=== PATIENT | male | born 1990 | race American Indian/Alaskan Native ===

== ENCOUNTER 2021-01-20 12:02 | Inpatient (IN) | payer SELFPAY ==
--- NOTE | 2021-01-20 12:46 | XRay Report ---
CHEST 1 VIEW INDICATION / CLINICAL INFORMATION: Dyspnea cough STUDY TIME: 1239 COMPARISON: None available. FINDINGS: SUPPORT DEVICES: None HEART / MEDIASTINUM: No significant abnormality. LUNGS / PLEURA: No significant acute pulmonary or pleural abnormality. No pneumothorax. ADDITIONAL FINDINGS: No significant additional findings. IMPRESSION: No significant acute abnormality Signer Name: George Car MD Signed: 01/20/2021 12:41 PM Workstation Name: [id number]
[2021-01-20 12:47] LABS: Basophils # (Auto) 0.1 K/mm3 (0.0-0.1); Basophils % (Auto) 0.5 % (0.0-1.8); Hemoglobin 16.8 gm/dl (11.8-15.2); Lymphocytes # (Auto) 1.9 K/mm3 (1.2-5.4); Mean Corpuscular HGB Conc 32 % (32-34); Mean Corpuscular Volume 99 fl (84-94); Monocytes # (Auto) 0.6 K/mm3 (0.0-0.8); Monocytes % (Auto) 3.9 % (0.0-7.3); Platelet Count 345 K/mm3 (140-440); Red Blood Count 5.34 M/mm3 (3.65-5.03); Red Cell Distribution Width 14.3 % (13.2-15.2)
[2021-01-20 13:05] LABS: Albumin 4.9 g/dL (3.9-5); Calcium 10.1 mg/dL (8.4-10.2)
[2021-01-20 13:06] LABS: C-Reactive Protein 0.3 mg/dL (0.00-1.30)
[2021-01-20] MEDS ORDERED: ALBUTEROL 2.5 MG/3 ML NEBU IH ONE (13:35)
[2021-01-20] MEDS ORDERED: IPRATROPIUM 0.02% NEBU 2.5 ML IH ONE (13:35)
[2021-01-20] MEDS ORDERED: SODIUM CHLORIDE 0.9% 1000 ML 1,000 ML IV ONE ×3 (13:36→15:03)
[2021-01-20 14:13] LABS: Bilirubin,Urine NEG (Negative); Blood,Urine MOD (Negative); Color,Urine Straw (Yellow); Mucus,Urine 1+ /HPF; Urobilinogen,Urine < 2.0 mg/dL (<2.0)
[2021-01-20 14:19] LABS: Amphetamine Screen,Urine Negative; Benzodiazepines Screen,Urine Negative; Cannabinoid Screen,Urine Negative; Cocaine Screen,Urine Negative; Methadone Screen,Urine Negative; Opiate Screen,Urine Negative
--- NOTE | 2021-01-20 14:54 | Cat Scan Report ---
CT angio chest INDICATION / CLINICAL INFORMATION: tachycardia shortness of breath OMNI 350 60 ML. TECHNIQUE: Axial CT images were obtained through the chest after injection of IV contrast. 3 plane MIP and/or 3D reconstructions were produced. All CT scans at this location are performed using CT dose reduction f or ALARA by means of automated exposure control. COMPARISON: None available. FINDINGS: PULMONARY ARTERIES: No central pulmonary artery filling defects. Respiratory motion degrades image qu ality obscuring the lobar, segmental and subsegmental pulmonary arteries. . HEART: No significant abnormality. MEDIASTINUM / ALISTAIR: No significant abnormality. LUNGS: No significant paraseptal emphysema with bullous changes. Lungs are clear No pleural effusion. No pneumothorax. ADDITIONAL FINDINGS: None. UPPER ABDOMEN: No acute findings. SKELETAL STRUCTURES: No significant osseous abnormality. IMPRESSION: 1. No CT evidence for central pulmonary embolism. Motion significantly degrades image quality in the distal pulmonary arteries are not evaluated. 2. Paraseptal emphysema. No acute findings. Signer Name: Grey Badillo MD Signed: 01/20/2021 2:49 PM Workstation Name: [id number]
[2021-01-20] MEDS ORDERED: INSULIN REGULAR, HUMAN 100 UNITS/1 ML IV ONE (15:03)
--- NOTE | 2021-01-20 15:04 | Emergency Department Report ---
ED Shortness of Breath HPI - General Chief Complaint: Dyspnea/Respdistress Stated Complaint: SOB Time Seen by Provider: 01/20/21 12:15 Source: patient Mode of arrival: Ambulatory Limitations: No Limitations - History of Present Illness Initial Comments: Chief complaint: Trouble breathing HPI: This a 30-year-old male with history of mental health disorder requiring Zyprexa therapy presents with shortness of breath generalized malaise for over a week. He has had shortness of breath cough. No sick contacts. Denies any pain MD Complaint: shortness of breath, cough -: Gradual, week(s) Severity: severe Consistency: constant Improves With: nothing Worsens With: nothing Context: other (History of cough) Associated Symptoms: cough - Related Data Allergies Allergy/AdvReac Type Severity Reaction Status Date / Time No Known Allergies Allergy Verified 01/20/21 12:09 ED Review of Systems ROS: Stated complaint: SOB Other details as noted in HPI Comment: All other systems reviewed and negative Constitutional: malaise. denies: chills, fever Respiratory: cough, shortness of breath Cardiovascular: denies: chest pain Gastrointestinal: denies: abdominal pain, nausea, vomiting Psychiatric: denies: depression, auditory hallucinations, visual hallucinations, homicidal thoughts, suicidal thoughts ED Past Medical Hx - Past Medical History Previous Medical History?: Yes Hx Hypertension: Yes Hx Psychiatric Treatment: Yes (on Zyprexa) - Surgical History Past Surgical History?: No - Social History Smoking Status: Current Every Day Smoker Substance Use Type: None ED Physical Exam - General Limitations: No Limitations General appearance: alert, in distress, other (K[place]maul respirations) - Head Head exam: Present: atraumatic, normocephalic - Eye Eye exam: Present: normal appearance - ENT ENT exam: Present: mucous membranes dry - Neck Neck exam: Present: normal inspection, full ROM - Respiratory Respiratory exam: Present: normal lung sounds bilaterally, other (Increased respiratory rate). Absent: wheezes, rales, rhonchi - Cardiovascular Cardiovascular Exam: Present: normal rhythm, tachycardia, normal heart sounds. Absent: systolic murmur, diastolic murmur, rubs, gallop - GI/Abdominal GI/Abdominal exam: Present: soft, normal bowel sounds. Absent: distended, tenderness, guarding, rebound - Rectal Rectal exam: Present: deferred - Extremities Exam Extremities exam: Present: normal inspection - Neurological Exam Neurological exam: Present: alert, oriented X3 - Psychiatric Psychiatric exam: Present: normal mood, anxious - Skin Skin exam: Present: warm, dry, intact, normal color. Absent: rash ED Course Vital Signs 01/20/21 01/20/21 01/20/21 12:07 13:01 13:31 Pulse Rate 137 H 116 H 110 H Respiratory 34 H 31 H 28 H Rate Blood Pressure 127/100 177/154 139/89 O2 Sat by Pulse 99 100 100 Oximetry 01/20/21 01/20/21 01/20/21 13:33 14:01 14:30 Pulse Rate 111 H 111 H Respiratory 24 25 H 25 H Rate Blood Pressure 167/106 167/106 O2 Sat by Pulse 100 100 100 Oximetry 01/20/21 16:31 Pulse Rate 104 H Respiratory 24 Rate Blood Pressure 157/104 O2 Sat by Pulse 100 Oximetry ED Medical Decision Making - Lab Data Result diagrams: 01/20/21 12:32 01/20/21 15:52 Laboratory Results - last 24 hr 01/20/21 01/20/21 01/20/21 12:32 12:32 12:35 WBC 15.8 H RBC 5.34 H Hgb 16.8 H Hct 53.0 H MCV 99 H MCH 31 MCHC 32 RDW 14.3 Plt Count 345 Lymph % (Auto) 12.0 L [place] % (Auto) 3.9 Eos % (Auto) 0.0 Baso % (Auto) 0.5 Lymph # (Auto) 1.9 [place] # (Auto) 0.6 Eos # (Auto) 0.0 Baso # (Auto) 0.1 Seg Neutrophils % 83.6 H Seg Neutrophils # 13.2 H D-Dimer VBG pH Sodium 127 L Potassium 4.7 Chloride 85.9 L Carbon Dioxide 4 L* Anion Gap 42 BUN 14 Creatinine 1.5 H Estimated GFR 55 BUN/Creatinine Ratio 9 Glucose 649 H* Calcium 10.1 Phosphorus Magnesium Ferritin Total Bilirubin 0.40 AST 13 ALT 30 Alkaline Phosphatase 164 H Lactate Dehydrogenase C-Reactive Protein Total Protein 8.5 H Albumin 4.9 Albumin/Globulin Ratio 1.4 Procalcitonin 0.36 01/20/21 01/20/21 01/20/21 12:35 12:35 12:35 WBC RBC Hgb Hct MCV MCH MCHC RDW Plt Count Lymph % (Auto) [place] % (Auto) Eos % (Auto) Baso % (Auto) Lymph # (Auto) [place] # (Auto) Eos # (Auto) Baso # (Auto) Seg Neutrophils % Seg Neutrophils # D-Dimer 223.16 VBG pH Sodium Potassium Chloride Carbon Dioxide Anion Gap BUN Creatinine Estimated GFR BUN/Creatinine Ratio Glucose 637 H* Calcium Phosphorus Magnesium Ferritin 1371.0 H Total Bilirubin AST ALT Alkaline Phosphatase Lactate Dehydrogenase 213 H C-Reactive Protein 0.30 Total Protein Albumin Albumin/Globulin Ratio Procalcitonin 01/20/21 01/20/21 15:09 15:09 WBC RBC Hgb Hct MCV MCH MCHC RDW Plt Count Lymph % (Auto) [place] % (Auto) Eos % (Auto) Baso % (Auto) Lymph # (Auto) [place] # (Auto) Eos # (Auto) Baso # (Auto) Seg Neutrophils % Seg Neutrophils # D-Dimer VBG pH 7.003 L* Sodium Potassium Chloride Carbon Dioxide Anion Gap BUN Creatinine Estimated GFR BUN/Creatinine Ratio Glucose Calcium Phosphorus 5.10 H Magnesium 2.10 Ferritin Total Bilirubin AST ALT Alkaline Phosphatase Lactate Dehydrogenase C-Reactive Protein Total Protein Albumin Albumin/Globulin Ratio Procalcitonin - EKG Data -: EKG Interpreted by Wy EKG shows normal: sinus rhythm, axis, intervals, QRS complexes, ST-T waves Rate: tachycardia - EKG Data Interpretation: normal EKG 01/20/21 17:26 EKG@1402 EKG interpreted by ms Sinus tachycardia rate 112 bpm normal axis normal intervals no ST elevation nonischemic T wave pattern - Medical Decision Making New onset diabetes mellitus, diabetic ketoacidosis. Severe acidosis venous pH 7.0, bicarbonate 3 Anion gap 37 CBC notable for hemoconcentration, leukocytosis possibly due to infection versus the marginalization. CTA of the chest ruled out pulmonary embolism without evidence of infectious process Admitted to the hospitalist service in fair condition. Patient received normal saline bolus, regular insulin bolus and insulin infusion. Critical Care Time: Yes Critical care time in (mins) excluding proc time.: 40 Critical care attestation.: If time is entered above; I have spent that time in minutes in the direct care of this critically ill patient, excluding procedure time. 40 minutes of critical care time excluding procedures were used in the care of the patient. I came immediately to the bedside upon patient's arrival. I obt ained history from EMS at the bedside. I discussed treatment plan with the nursing team members. I reviewed electronic record. Patient required multiple interventions and reassessments. ED Disposition Clinical Impression: DKA (diabetic ketoacidosis) Qualifiers: Diabetes mellitus complication detail: without coma Disposition: 09 ADMITTED INPATIENT Is pt being admited?: Yes Does the pt Need Aspirin: No Condition: Fair
[2021-01-20] MEDS ORDERED: ALBUTEROL 2.5 MG/3 ML NEBU IH PRN (15:32)
[2021-01-20] MEDS ORDERED: ACETAMINOPHEN 325 MG TAB PO PRN ×2 (15:32)
[2021-01-20] MEDS ORDERED: oxyCODONE /ACETAMINOPHEN 5-325MG TAB PO PRN (15:32)
[2021-01-20] MEDS ORDERED: HYDROmorphone 1 MG/1 ML INJ IV PRN ×2 (15:32)
--- NOTE | 2021-01-20 15:36 | History and Physical Report ---
History of Present Illness Chief complaint: I just do not feel good History of present illness: 30 YO Male with HTN, Nicotine Dependence, Medication Noncompliance presents ED for evaluation. Patient reports "I just do not feel good". Patient states that he has experienced shortness of breath, fatigue, weakness, body aches, nausea, polydipsia, polyuria over the past 1 week with persistent and worsening symptoms over the same timeframe. Patient transported to [facility] via private vehicle for further care and evaluation of the aforementioned symptoms. The patient was seen and evaluated in the emergency department. All lab and imaging studies reviewed. The patient was found to be tachypneic with a respiratory rate in the 30s, a heart rate in the 130s, as well as a pulse oximetry of 87% with exertion which is consistent with acute hypoxemic respiratory failure. Patient found to have DKA, metabolic acidosis, DEEPTI with ATN, as well as sepsis. Patient admitted to ICU and initiated on DKA protocol: Sepsis protocol, as well as coronavirus protocol. Patient denies fever, chills, chest pain, palpitation, skin rash, recent ill contacts, or known exposure to COVID-19. No prior admission for review. No medication listed at time of admission reconciliation. The patient is not vaccinated against coronavirus. Past History Past Medical History: hypertension Past Surgical History: No surgical history, Other (Reviewed) Social history: single. denies: smoking, alcohol abuse Family history: diabetes, hypertension Medications and Allergies Allergies Allergy/AdvReac Type Severity Reaction Status Date / Time No Known Allergies Allergy Verified 01/20/21 12:09 Active Meds: Active Medications Sodium Chloride (Nacl 0.9% 1000 Ml) 1,000 mls @ 999 mls/hr IV BOLUS ONE Stop: 01/20/21 16:03 Last Admin: 01/20/21 15:09 Dose: 999 mls/hr Documented by: Sodium Chloride (Nacl 0.9% 1000 Ml) 1,000 mls @ 999 mls/hr IV BOLUS ONE Stop: 01/20/21 16:03 Insulin Human Regular 100 (units/ Sodium Chloride) 100 mls @ 7 mls/hr IV TITR MT; Protocol Review of Systems Constitutional: weakness, malaise, lethargy, no weight gain, no fever, no chills Ears, nose, mouth and throat: no ear pain, no decreased hearing, no nose pain, no nasal discharge Cardiovascular: no chest pain, no palpitations, no rapid/irregular heart beat, no edema, no syncope Respiratory: shortness of breath, no congestion, no wheezing, no pleurisy, no pain on inspiration Gastrointestinal: nausea, no abdominal pain, no vomiting, no diarrhea, no constipation Genitourinary Male: no hematuria, no flank pain, no discharge, no urinary hesitancy, no nocturia Rectal: no pain, no incontinence, no bleeding Musculoskeletal: no neck stiffness, no shooting arm pain, no low back pain Integumentary: no rash, no redness, no wounds, no jaundice Neurological: no head injury, no paralysis, no weakness, no parathesias, no numbness, no tingling, no seizures Psychiatric: no anxiety, no sleep disturbances, no hypersomnia Endocrine: polydipsia, polyuria, high blood sugars, no cold intolerance, no heat intolerance, no flushing, no thyroid mass Hematologic/Lymphatic: no easy bruising, no easy bleeding, no lymphedema Allergic/Immunologic: no urticaria, no allergic rhinitis, no wheezing, no anaphylaxis Exam - Constitutional Vitals: Temp Pulse Resp BP Pulse Ox 137 H 24 127/100 100 01/20/21 12:07 01/20/21 13:33 01/20/21 12:07 01/20/21 13:33 General appearance: Present: mild distress - EENT Eyes: Present: PERRL ENT: hearing intact, clear oral mucosa - Neck Neck: Present: supple, normal ROM - Respiratory Respiratory effort: labored, accessory muscle use, stridor Respiratory: bilateral: diminished - Cardiovascular Rhythm: other (Tachycardia) Heart Sounds: Present: S1 & S2. Absent: rub, click - Extremities Extremities: pulses symmetrical, No edema Peripheral Pulses: within normal limits - Abdominal General gastrointestinal: Present: soft, non-tender, non-distended, normal bowel sounds Male genitourinary: Present: normal - Integumentary Integumentary: Present: dry, clammy, decreased turgor - Musculoskeletal Musculoskeletal: generalized weakness - Psychiatric Psychiatric: appropriate mood/affect, intact judgment & insight, agitated - Neurologic Neurologic: CNII-XII intact, moves all extremities Results - Labs CBC & Chem 7: 01/20/21 12:32 01/20/21 12:35 Labs: Abnormal lab results 01/20/21 01/20/21 01/20/21 Range/Units 12:32 12:32 12:35 WBC 15.8 H (4.5-11.0) K/mm3 RBC 5.34 H (3.65-5.03) M/mm3 Hgb 16.8 H (11.8-15.2) gm/dl Hct 53.0 H (35.5-45.6) % MCV 99 H (84-94) fl Lymph % (Auto) 12.0 L (13.4-35.0) % Seg Neutrophils % 83.6 H (40.0-70.0) % Seg Neutrophils # 13.2 H (1.8-7.7) K/mm3 Sodium 127 L (137-145) mmol/L Chloride 85.9 L (98-107) mmol/L Carbon Dioxide 4 L* (22-30) mmol/L Creatinine 1.5 H (0.8-1.3) mg/dL Glucose 649 H* 637 H* (75-100) mg/dL Ferritin (30.0-300.0) ng/mL Alkaline Phosphatase 164 H (35-129) units/L Lactate Dehydrogenase 213 H (91-180) units/L Total Protein 8.5 H (6.3-8.2) g/dL 01/20/21 Range/Units 12:35 WBC (4.5-11.0) K/mm3 RBC (3.65-5.03) M/mm3 Hgb (11.8-15.2) gm/dl Hct (35.5-45.6) % MCV (84-94) fl Lymph % (Auto) (13.4-35.0) % Seg Neutrophils % (40.0-70.0) % Seg Neutrophils # (1.8-7.7) K/mm3 Sodium (137-145) mmol/L Chloride (98-107) mmol/L Carbon Dioxide (22-30) mmol/L Creatinine (0.8-1.3) mg/dL Glucose (75-100) mg/dL Ferritin 1371.0 H (30.0-300.0) ng/mL Alkaline Phosphatase (35-129) units/L Lactate Dehydrogenase (91-180) units/L Total Protein (6.3-8.2) g/dL Assessment and Plan - Patient Problems (1) Sepsis Current Visit: No Status: Acute Plan to address problem: Sepsis protocol: CBC, CMP, IV fluid resuscitation therapy, IV antibiotic therapy, serial lactic acid level, monitor urine output every shift, maintain mean arterial pressure greater than or equal to 65, blood culture. The high probability of a clinically significant, sudden or life threatening deterioration of the [endocrine, neuro, renal, infectious disease, pulmonary] system(s) required my full and direct attention, intervention and personal management. The aggregate critical care time was [65] minutes. This time is in addition to time spent performing reported procedures but includes the following: [x] Data Review and interpretation [x] Patient assessment and monitoring of vital signs [x] Documentation [x] Medication orders and management (2) Suspected 2019 novel coronavirus infection Current Visit: No Status: Acute Plan to address problem: Coronavirus protocol: IV antibiotic therapy, IV steroid therapy, supplemental oxygen, pulse oximetry, nebulizer therapy, vitamin C therapy, vitamin D therapy, zinc therapy, (3) DKA (diabetic ketoacidosis) Current Visit: No Status: Acute Qualifiers: Diabetes mellitus complication detail: without coma Plan to address problem: DKA protocol: IV fluid resuscitation therapy, insulin drip, serial BMP, monitor anion gap, (4) Respiratory failure Current Visit: No Status: Acute Qualifiers: Chronicity: acute Respiratory failure complication: hypoxia Qualified Code(s): J96.01 - Acute respiratory failure with hypoxia Plan to address problem: Supplemental oxygen, pulse oximetry, nebulizer therapy, prone positioning while in bed as per clinical staff capability. (5) COVID-19 vaccination not done Current Visit: No Status: Acute Plan to address problem: Patient counseled, supportive care. (6) DVT prophylaxis Current Visit: No Status: Acute Plan to address problem: SCD to bilateral lower extremities while in bed, prophylactic anticoagulation
[2021-01-20] MEDS ORDERED: INSULIN REGULAR, HUMAN 100 UNITS in SODIUM CHLORIDE 0.9% 99 ML IV SCH (16:00)
[2021-01-20] MEDS: INSULIN REGULAR, HUMAN 100 UNITS in SODIUM CHLORIDE 0.9% 99 ML IV SCH (16:10)
[2021-01-20] MEDS ORDERED: SODIUM CHLORIDE 0.9% 1000 ML IV SOLN IV ONE (16:15)
[2021-01-20 16:26] LABS: BUN/Creatinine Ratio 11; Blood Urea Nitrogen 15 mg/dL (9-20); Hemolysis Index 7
[2021-01-20] MEDS: cefTRIAXone/NS 2 GM/100 ML 2 GM/100 ML BAG IV SCH (17:53)
[2021-01-20] MEDS: SODIUM BICARB 8.4% 50 MEQ/50 ML SYRINGE IV SCH (17:53)
[2021-01-20] MEDS: AZITHROMYCIN/NS 500 MG/250 ML 500 MG/250 ML BAG IV SCH (17:53)
--- NOTE | 2021-01-20 17:54 | Electrocardiograph Report ---
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
[2021-01-20] MEDS: methylPREDNISolone Sod Succinate 40 MG/1 ML INJ IV SCH (18:01)
[2021-01-20] MEDS ORDERED: SODIUM CHLORIDE 0.9% 1000 ML 1,000 ML ONE (19:31)
[2021-01-20 20:21] LABS: BUN/Creatinine Ratio 14; Blood Urea Nitrogen 14 mg/dL (9-20); Calcium 8.1 mg/dL (8.4-10.2); Hemolysis Index 9
[2021-01-20] MEDS ORDERED: DEXTROSE 50% IN WATER (25GM) 50 ML SYRINGE IV PRN (22:12)
[2021-01-20] MEDS: ZINC SULFATE 220 MG CAP PO SCH (22:37)
[2021-01-20] MEDS: ASCORBIC ACID 500 MG TAB PO SCH (22:37)
[2021-01-20] MEDS ORDERED: D5W/0.45% NACL/KCL 20 MEQ 20 MEQ/1,000 ML BAG IV SCH (23:00)
[2021-01-21 00:30] LABS: BUN/Creatinine Ratio 10; Blood Urea Nitrogen 11 mg/dL (9-20); Calcium 8.4 mg/dL (8.4-10.2); Hemolysis Index 13
[2021-01-21] MEDS: SODIUM BICARB 8.4% 50 MEQ/50 ML SYRINGE IV SCH ×3 (00:31→11:37)
[2021-01-21] MEDS: methylPREDNISolone Sod Succinate 40 MG/1 ML INJ IV SCH ×2 (01:02→10:03)
[2021-01-21] MEDS: INSULIN REGULAR, HUMAN 100 UNITS in SODIUM CHLORIDE 0.9% 99 ML IV SCH ×2 (04:22→18:06)
[2021-01-21 05:48] LABS: BUN/Creatinine Ratio 9; Blood Urea Nitrogen 9 mg/dL (9-20); Calcium 8.4 mg/dL (8.4-10.2); Hemolysis Index 4
[2021-01-21] MEDS: D5W/0.45% NACL/KCL 40 MEQ 40 MEQ/1,000 ML BAG IV SCH ×2 (07:23→12:51)
[2021-01-21 08:45] LABS: BUN/Creatinine Ratio 10; Blood Urea Nitrogen 9 mg/dL (9-20); Calcium 8.7 mg/dL (8.4-10.2); Hemolysis Index 9
[2021-01-21] MEDS: CHOLECALCIFEROL (VIT D3) 1000 UNIT (25 mcg) TAB PO SCH (10:18)
[2021-01-21] MEDS: ZINC SULFATE 220 MG CAP PO SCH ×2 (10:18→21:58)
[2021-01-21] MEDS: ASCORBIC ACID 500 MG TAB PO SCH ×2 (10:18→21:57)
[2021-01-21] MEDS ORDERED: SODIUM PHOSPHATE 30 MMOL in SODIUM CHLORIDE 0.9% 500 ML 500 ML IV SCH (11:00)
[2021-01-21 13:15] LABS: Hematocrit 38.8 % (35.5-45.6); Hemoglobin 13.3 gm/dl (11.8-15.2); Mean Corpuscular HGB Conc 34 % (32-34); Mean Corpuscular Volume 90 fl (84-94); Platelet Count 250 K/mm3 (140-440); Red Blood Count 4.31 M/mm3 (3.65-5.03); Red Cell Distribution Width 13.1 % (13.2-15.2)
--- NOTE | 2021-01-21 14:31 | Progress Note ---
<KIRSTIE VORA - Last Filed: 01/21/21 16:44> Assessment and Plan Assessment and plan: This is a [id number] AA Male with a history of HTN, noncompliant with meds, depression, and nicotine dependence who came complaining of not feeling good. Patient states that he has experienced shortness of breath, fatigue, weakness, body aches, nausea, polydipsia, polyuria over the past 1 week with persistent and worsening symptoms over the same timeframe. In the ED patient was tachycardic, tachypneic, hypoxic with SPO2 at 87% on RA. Patient was found to be in DKA and metabolic acidosis, DKA protocol was initiated. Patient was then transferred to ICU for further management. Hospital Course to Date: 01/21/21- Patient remains on DKA protocol, repeat labs pending to f/u on GAP. Electrolytes replaced, renal function improved. Will continue to monitor electrolytes and renal function, serial labs ordered Assessment and Plan #Neuro:Anxiety #H/o Depression - Probably secondary due to his acidosis - Patient is currently calm and cooperative - Stated he takes zyprexa for depression but can't remember the dosage, to bring home meds today - Avoid benzodiazepine at this time - Prn analgesia for CPOT greater than 3 - Maintenance of sleep-wake cycle, avoid delirium #CV:Tachycardia #H/o HTN - Remains ST on the monitor, HR in 110s - Patient is normotensive - Maintain adequate perfusion - Continue rehydration with cont. 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 Paraseptal emphysema - Initial 87% on RA - Currently 99% to 100% on RA - Acidosis resolved - COVID swab neg - Continue SPO2 monitoring and supplemental oxygen as needed for SPO2 less than 90% #GI: NPO - Keep NPO while on DKA protocol - Continue rehydration with cont. IVF per DKA protoco - PPI- Pecid BID #:Hyponatremia #Hypophosphatemia - Electtrolytes repleted - Renal function improved - Continue IVF per DKA protocol - Stright I&Os - Avoid nephrotoxic medications; Renally dose medications - Continue to monitor renal status and electrolytes - Serial labs ordered #Leukocytosis #Metabolic Acidosis #Lactic Acidosis- resolved - Probably related to the DKA - Lactic as high as 3.5--->1.1 - Leukocytosis worsen 19.9 today - Imagings are unremarkable - COVID swab neg - Blood culture pending - Procal and CRP are normal - Patient remains afebrile - Continue empiric ABx- Rocephin and Azithromycin for now - Continue to F/U on B.cult - Daily CBC monitor - Consider ID consult if febrile or/and if leukocytosis persists #DKA (diabetic ketoacidosis) - Continue DKA protocol - IV fluid resuscitation therapy - On insulin drip - Serial BMP - Continue to monitor anion gap The high probability of a clinically significant, sudden or life threatening deterioration of the [ID, Endo, ] system(s) required my full and direct attention, intervention and personal management. The aggregate critical care time was [60] minutes. This time is in addition to time spent performing reported procedures but includes the following: [x] Data Review and interpretation [x] Patient assessment and monitoring of vital signs [x] Documentation [x] Medication orders and management Disposition Plan: ICU Total Time Spent with Patient (Minutes): 60 History Interval history: Patient seen and examined at the bedside. Fully AAO, on RA, on DKA protocol. No significant events overnight Hospitalist Physical - Constitutional Vitals: Temp Pulse Resp BP Pulse Ox 98.3 F 99 H 25 H 145/86 95 01/21/21 07:20 01/21/21 13:11 01/21/21 13:11 01/21/21 13:11 01/21/21 13:11 General appearance: Present: no acute distress, mild distress - EENT Eyes: Present: PERRL ENT: hearing intact, clear oral mucosa - Neck Neck: Present: normal ROM - Respiratory Respiratory effort: normal Respiratory: bilateral: CTA - Cardiovascular Rhythm: regular Heart Sounds: Present: S1 & S2 - Extremities Extremities: no ischemia, pulses intact, pulses symmetrical, No edema Peripheral Pulses: within normal limits - Abdominal General gastrointestinal: soft, non-tender, normal bowel sounds - Integumentary Integumentary: Present: clear, warm, dry - Psychiatric Psychiatric: appropriate mood/affect, cooperative - Neurologic Neurologic: moves all extremities - Allied Health Allied health notes reviewed: nursing Results - Labs CBC & Chem 7: 01/21/21 12:58 01/21/21 14:44 Labs: Laboratory Last Values WBC 19.9 K/mm3 (4.5-11.0) H 01/21/21 12:58 RBC 4.31 M/mm3 (3.65-5.03) 01/21/21 12:58 Hgb 13.3 gm/dl (11.8-15.2) D 01/21/21 12:58 Hct 38.8 % (35.5-45.6) D 01/21/21 12:58 MCV 90 fl (84-94) 01/21/21 12:58 MCH 31 pg (28-32) 01/21/21 12:58 MCHC 34 % (32-34) 01/21/21 12:58 RDW 13.1 % (13.2-15.2) L 01/21/21 12:58 Plt Count 250 K/mm3 (140-440) 01/21/21 12:58 Lymph % (Auto) 12.0 % (13.4-35.0) L 01/20/21 12:32 [place] % (Auto) 3.9 % (0.0-7.3) 01/20/21 12:32 Eos % (Auto) 0.0 % (0.0-4.3) 01/20/21 12:32 Baso % (Auto) 0.5 % (0.0-1.8) 01/20/21 12:32 Lymph # (Auto) 1.9 K/mm3 (1.2-5.4) 01/20/21 12:32 [place] # (Auto) 0.6 K/mm3 (0.0-0.8) 01/20/21 12:32 Eos # (Auto) 0.0 K/mm3 (0.0-0.4) 01/20/21 12:32 Baso # (Auto) 0.1 K/mm3 (0.0-0.1) 01/20/21 12:32 Seg Neutrophils % 83.6 % (40.0-70.0) H 01/20/21 12:32 Seg Neutrophils # 13.2 K/mm3 (1.8-7.7) H 01/20/21 12:32 D-Dimer 223.16 ng/mlDDU (0-234) 01/20/21 12:35 VBG pH 7.003 (7.320-7.420) L* 01/20/21 15:09 Sodium 133 mmol/L (137-145) L 01/21/21 08:00 Potassium 3.6 mmol/L (3.6-5.0) 01/21/21 08:00 Chloride 101.2 mmol/L (98-107) 01/21/21 08:00 Carbon Dioxide 14 mmol/L (22-30) L 01/21/21 08:00 Anion Gap 21 mmol/L 01/21/21 08:00 BUN 9 mg/dL (9-20) 01/21/21 08:00 Creatinine 0.9 mg/dL (0.8-1.3) 01/21/21 08:00 Estimated GFR > 60 ml/min 01/21/21 08:00 BUN/Creatinine Ratio 10 % 01/21/21 08:00 Glucose 160 mg/dL (75-100) H 01/21/21 08:00 POC Glucose 234 mg/dL (70-105) H 01/21/21 14:17 Lactic Acid 1.10 mmol/L (0.7-2.0) 01/20/21 23:41 Calcium 8.7 mg/dL (8.4-10.2) 01/21/21 08:00 Phosphorus 1.20 mg/dL (2.5-4.5) L D 01/21/21 08:00 Magnesium 1.80 mg/dL (1.7-2.3) 01/21/21 08:00 Ferritin 1371.0 ng/mL (30.0-300.0) H 01/20/21 12:35 Total Bilirubin 0.40 mg/dL (0.1-1.2) 01/20/21 12:32 AST 13 units/L (5-40) 01/20/21 12:32 ALT 30 units/L (7-56) 01/20/21 12:32 Alkaline Phosphatase 164 units/L (35-129) H 01/20/21 12:32 Lactate Dehydrogenase 213 units/L (91-180) H 01/20/21 12:35 C-Reactive Protein 0.30 mg/dL (0.00-1.30) 01/20/21 12:35 Total Protein 8.5 g/dL (6.3-8.2) H 01/20/21 12:32 Albumin 4.9 g/dL (3.9-5) 01/20/21 12:32 Albumin/Globulin Ratio 1.4 % 01/20/21 12:32 Procalcitonin 0.36 ng/mL (<0.15) 01/20/21 12:35 Urine Color Straw (Yellow) 01/20/21 Unknown Urine Turbidity Clear (Clear) 01/20/21 Unknown Urine pH 5.0 (5.0-7.0) 01/20/21 Unknown Ur Specific [place] 1.024 (1.003-1.030) 01/20/21 Unknown Urine Protein 100 mg/dl mg/dL (Negative) 01/20/21 Unknown Urine Glucose (UA) >=500 mg/dL (Negative) 01/20/21 Unknown Urine Ketones 80 mg/dL (Negative) 01/20/21 Unknown Urine Blood Mod (Negative) 01/20/21 Unknown Urine Nitrite Neg (Negative) 01/20/21 Unknown Urine Bilirubin Neg (Negative) 01/20/21 Unknown Urine Urobilinogen < 2.0 mg/dL (<2.0) 01/20/21 Unknown Ur Leukocyte Esterase Neg (Negative) 01/20/21 Unknown Urine WBC (Auto) 1.0 /HPF (0.0-6.0) 01/20/21 Unknown Urine RBC (Auto) 1.0 /HPF (0.0-6.0) 01/20/21 Unknown U Epithel Cells (Auto) 1.0 /HPF (0-13.0) 01/20/21 Unknown Urine Mucus 1+ /HPF 01/20/21 Unknown Urine Opiates Screen Negative 01/20/21 Unknown Urine Methadone Screen Negative 01/20/21 Unknown Ur Barbiturates Screen Negative 01/20/21 Unknown Ur Phencyclidine Scrn Negative 01/20/21 Unknown Ur Amphetamines Screen Negative 01/20/21 Unknown U Benzodiazepines Scrn Negative 01/20/21 Unknown Urine Cocaine Screen Negative 01/20/21 Unknown U Marijuana (THC) Screen Negative 01/20/21 Unknown Drugs of Abuse Note Disclamer 01/20/21 Unknown Coronavirus (PCR) Negative (Negative) 01/21/21 Unknown Microbiology: Microbiology 01/20/21 15:52 Peripheral/Venous Blood Culture - Preliminary Culture in Progress 01/20/21 15:52 Peripheral/Venous Blood Culture - Preliminary Culture in Progress Active Medications - Current Medications Current Medications: Generic Name Dose Route Start Last Admin Trade Name Freq PRN Reason Stop Dose Admin Acetaminophen 650 mg 01/20/21 15:32 Acetaminophen 325 Mg Tab PO Q6H PRN Pain MILD(1-3)/Fever >100.5/CONSTANTINO Albuterol 2.5 mg 01/20/21 15:32 Albuterol 2.5 Mg/3 Ml Nebu IH Q3HRT PRN Shortness Of Breath Ascorbic Acid 500 mg 01/20/21 22:00 01/21/21 10:18 Ascorbic Acid 500 Mg Tab PO Not Given BID MT Cholecalciferol 1,000 unit 01/21/21 10:00 01/21/21 10:18 Cholecalciferol (Vit D3) 1000 Unit (25 Mcg) Tab PO Not Given QDAY MT Dextrose 0 ml 01/20/21 22:12 Dextrose 50% In Water (25gm) 50 Ml Syringe IV Q30MIN PRN Hypoglycemia Protocol Hydromorphone HCl 0.25 mg 01/20/21 15:32 Hydromorphone 1 Mg/1 Ml Inj IV Q4H PRN Pain, Moderate (4-6) Hydromorphone HCl 0.5 mg 01/20/21 15:32 Hydromorphone 1 Mg/1 Ml Inj IV Q23H PRN Pain , Severe (7-10) Insulin Human Regular 100 100 mls @ 7 mls/hr 01/20/21 16:00 01/21/21 12:56 units/ Sodium Chloride IV 0 units/hr TITR MT 0 mls/hr Titration Protocol 7 UNITS/HR Ceftriaxone Sodium 2 gm in 100 mls @ 200 mls/hr 01/20/21 17:00 01/20/21 17:53 Rocephin/Ns 2 Gm/100 Ml IV 200 mls/hr Q24H MT Administration Protocol Azithromycin 500 mg in 250 mls @ 250 mls/hr 01/20/21 17:00 01/20/21 17:53 Zithromax/Ns IV 250 mls/hr Q24H MT Administration Protocol Potassium Chloride/Dextrose/Sod Cl 40 meq in 1,000 mls @ 125 mls/hr 01/21/21 07:00 01/21/21 12:51 D5w/0.45% Nacl/Kcl 40 Meq IV 125 mls/hr DIRECT MT Administration Sodium Phosphate 30 mmol/ 510 mls @ 125 mls/hr 01/21/21 11:00 01/21/21 11:37 Sodium Chloride IV 01/21/21 16:00 125 mls/hr ONCE@1100 MT Administration Methylprednisolone Sodium Succinate 40 mg 01/20/21 18:00 01/21/21 10:03 Methylprednisolone Sod Succinate 40 Mg/1 Ml Inj IV 40 mg Q8H MT Administration Oxycodone/Acetaminophen 1 tab 01/20/21 15:32 Oxycodone /Acetaminophen 5-325mg Tab PO Q16H PRN Pain, Moderate (4-6) Sodium Bicarbonate 50 meq 01/20/21 17:00 01/21/21 11:37 Sodium Bicarb 8.4% 50 Meq/50 Ml Syringe IV 01/21/21 16:59 50 meq Q6H MT Administration Sodium Chloride 10 ml 01/20/21 22:00 01/21/21 10:04 Sodium Chloride 0.9% 10 Ml Flush Syringe IV 10 ml BID MT Administration Sodium Chloride 10 ml 01/20/21 15:32 Sodium Chloride 0.9% 10 Ml Flush Syringe IV PRN PRN LINE FLUSH Zinc Sulfate 220 mg 01/20/21 22:00 01/21/21 10:18 Zinc Sulfate 220 Mg Cap PO Not Given BID MT Nutrition/Malnutrition Assess - Dietary Evaluation Nutrition/Malnutrition Findings: Nutrition Notes Start: 01/21/21 12:41 Freq: Status: Active Protocol: Document 01/21/21 12:41 JEYSON (Rec: 01/21/21 12:52 JEYSON [id number]) Nutrition Notes Need for Assessment generated from: MD Order,time study clerk,MST Initial or Follow up Assessment Current Diagnosis Acute Kidney Injury,Diabetes, Sepsis,Respiratory Failure Other Pertinent Diagnosis DKA, SOB, r/o COVID-19, mental health d/o Current Diet NPO Labs/Tests Phos 1.2 CO2 - 14 Na 133 BG 160 Pertinent Medications Vit C and D3, Zinc sulfate, Insulin gtt, Solumedrol, Na bicarb, D5 1/2NS + 40mEq KCl at 125ml/hr Height 5 ft 11 in Weight 77.111 kg [place] Body Weight (kg) 78.18 BMI 23.7 Weight Status Appropriate Subjective/Other Information RD consulted for diet education and NTR recommendations; pt also screened for malnutrition risk and new onset DM. Pt with hx of medication noncompliance. He was admitted with s/s of hyperglycemia. BG upon admission was 649. Pt on enhanced precaution for COVID- 19; attempted to call pt several times for malnutrition risk assessment, but he is not answering phone. Burn Absent Trauma Absent Minimum of two criteria No #1 Nutrition Diagnosis Altered nutrition-related laboratory values Etiology hx of medication noncompliance , uncontrolled DM As Evidenced by Signs and Symptoms BG upon admission 649 Is patient on ventilator? No Is Patient Ambulatory and/or Out of Bed No REE-(Lohman-St. Jeor-confined to bed) [phone] Calculation Used for Recommendations Lohman-St Jeor Additional Notes Pro needs 1.2-2g/k-154g/ day Fluid needs 1ml/kcal Nutrition Intervention Change Diet Order: Advance diet to Consistent CHO when medically feasible Goal #1 Improved BG control Goal #2 Diet advancement to meet nutrient needs Anticipated Discharge Needs: CHO-controlled diet; take medications as prescribed Follow-Up By: 01/25/21 Additional Comments F/U: diet advancement, diet education needs, MST assessment <TK SIERRA - Last Filed: 01/21/21 23:15> Assessment and Plan Assessment and plan: I saw and evaluated the patient. Discussed with the nurse practitioner and agree with their findings and plan as documented in this note. Hospitalist Physical - Constitutional Vitals: Temp Pulse Resp BP Pulse Ox 98.3 F 108 H 23 131/87 99 01/21/21 20:00 01/21/21 22:40 01/21/21 22:40 01/21/21 22:40 01/21/21 22:40 Results - Labs CBC & Chem 7: 01/21/21 12:58 01/21/21 18:37 Labs: Laboratory Last Values WBC 19.9 K/mm3 (4.5-11.0) H 01/21/21 12:58 RBC 4.31 M/mm3 (3.65-5.03) 01/21/21 12:58 Hgb 13.3 gm/dl (11.8-15.2) D 01/21/21 12:58 Hct 38.8 % (35.5-45.6) D 01/21/21 12:58 MCV 90 fl (84-94) 01/21/21 12:58 MCH 31 pg (28-32) 01/21/21 12:58 MCHC 34 % (32-34) 01/21/21 12:58 RDW 13.1 % (13.2-15.2) L 01/21/21 12:58 Plt Count 250 K/mm3 (140-440) 01/21/21 12:58 Lymph % (Auto) 12.0 % (13.4-35.0) L 01/20/21 12:32 [place] % (Auto) 3.9 % (0.0-7.3) 01/20/21 12:32 Eos % (Auto) 0.0 % (0.0-4.3) 01/20/21 12:32 Baso % (Auto) 0.5 % (0.0-1.8) 01/20/21 12:32 Lymph # (Auto) 1.9 K/mm3 (1.2-5.4) 01/20/21 12:32 [place] # (Auto) 0.6 K/mm3 (0.0-0.8) 01/20/21 12:32 Eos # (Auto) 0.0 K/mm3 (0.0-0.4) 01/20/21 12:32 Baso # (Auto) 0.1 K/mm3 (0.0-0.1) 01/20/21 12:32 Seg Neutrophils % 83.6 % (40.0-70.0) H 01/20/21 12:32 Seg Neutrophils # 13.2 K/mm3 (1.8-7.7) H 01/20/21 12:32 D-Dimer 223.16 ng/mlDDU (0-234) 01/20/21 12:35 VBG pH 7.003 (7.320-7.420) L* 01/20/21 15:09 Sodium 137 mmol/L (137-145) 01/21/21 18:37 Potassium 3.5 mmol/L (3.6-5.0) L 01/21/21 18:37 Chloride 105.8 mmol/L (98-107) 01/21/21 18:37 Carbon Dioxide 16 mmol/L (22-30) L 01/21/21 18:37 Anion Gap 19 mmol/L 01/21/21 18:37 BUN 8 mg/dL (9-20) L 01/21/21 18:37 Creatinine 0.8 mg/dL (0.8-1.3) 01/21/21 18:37 Estimated GFR > 60 ml/min 01/21/21 18:37 BUN/Creatinine Ratio 10 % 01/21/21 18:37 Glucose 124 mg/dL (75-100) H 01/21/21 18:37 POC Glucose 184 mg/dL (70-105) H 01/21/21 22:16 Lactic Acid 1.10 mmol/L (0.7-2.0) 01/20/21 23:41 Calcium 8.5 mg/dL (8.4-10.2) 01/21/21 18:37 Phosphorus 1.10 mg/dL (2.5-4.5) L 01/21/21 18:37 Magnesium 1.80 mg/dL (1.7-2.3) 01/21/21 18:37 Ferritin 1371.0 ng/mL (30.0-300.0) H 01/20/21 12:35 Total Bilirubin 0.40 mg/dL (0.1-1.2) 01/20/21 12:32 AST 13 units/L (5-40) 01/20/21 12:32 ALT 30 units/L (7-56) 01/20/21 12:32 Alkaline Phosphatase 164 units/L (35-129) H 01/20/21 12:32 Lactate Dehydrogenase 213 units/L (91-180) H 01/20/21 12:35 C-Reactive Protein 0.30 mg/dL (0.00-1.30) 01/20/21 12:35 Total Protein 8.5 g/dL (6.3-8.2) H 01/20/21 12:32 Albumin 4.9 g/dL (3.9-5) 01/20/21 12:32 Albumin/Globulin Ratio 1.4 % 01/20/21 12:32 Procalcitonin 0.36 ng/mL (<0.15) 01/20/21 12:35 Urine Color Straw (Yellow) 01/20/21 Unknown Urine Turbidity Clear (Clear) 01/20/21 Unknown Urine pH 5.0 (5.0-7.0) 01/20/21 Unknown Ur Specific [place] 1.024 (1.003-1.030) 01/20/21 Unknown Urine Protein 100 mg/dl mg/dL (Negative) 01/20/21 Unknown Urine Glucose (UA) >=500 mg/dL (Negative) 01/20/21 Unknown Urine Ketones 80 mg/dL (Negative) 01/20/21 Unknown Urine Blood Mod (Negative) 01/20/21 Unknown Urine Nitrite Neg (Negative) 01/20/21 Unknown Urine Bilirubin Neg (Negative) 01/20/21 Unknown Urine Urobilinogen < 2.0 mg/dL (<2.0) 01/20/21 Unknown Ur Leukocyte Esterase Neg (Negative) 01/20/21 Unknown Urine WBC (Auto) 1.0 /HPF (0.0-6.0) 01/20/21 Unknown Urine RBC (Auto) 1.0 /HPF (0.0-6.0) 01/20/21 Unknown U Epithel Cells (Auto) 1.0 /HPF (0-13.0) 01/20/21 Unknown Urine Mucus 1+ /HPF 01/20/21 Unknown Urine Opiates Screen Negative 01/20/21 Unknown Urine Methadone Screen Negative 01/20/21 Unknown Ur Barbiturates Screen Negative 01/20/21 Unknown Ur Phencyclidine Scrn Negative 01/20/21 Unknown Ur Amphetamines Screen Negative 01/20/21 Unknown U Benzodiazepines Scrn Negative 01/20/21 Unknown Urine Cocaine Screen Negative 01/20/21 Unknown U Marijuana (THC) Screen Negative 01/20/21 Unknown Drugs of Abuse Note Disclamer 01/20/21 Unknown Coronavirus (PCR) Negative (Negative) 01/21/21 Unknown Microbiology: Microbiology 01/20/21 15:52 Peripheral/Venous Blood Culture - Preliminary NO GROWTH AFTER 24 HOURS 01/20/21 15:52 Peripheral/Venous Blood Culture - Preliminary NO GROWTH AFTER 24 HOURS Active Medications - Current Medications Current Medications: Generic Name Dose Route Start Last Admin Trade Name Freq PRN Reason Stop Dose Admin Acetaminophen 650 mg 01/20/21 15:32 Acetaminophen 325 Mg Tab PO Q6H PRN Pain MILD(1-3)/Fever >100.5/CONSTANTINO Albuterol 2.5 mg 01/20/21 15:32 Albuterol 2.5 Mg/3 Ml Nebu IH Q3HRT PRN Shortness Of Breath Ascorbic Acid 500 mg 10/27/21 22:00 01/21/21 21:57 Ascorbic Acid 500 Mg Tab PO 500 mg BID MT Administration Cholecalciferol 1,000 unit 01/21/21 10:00 01/21/21 10:18 Cholecalciferol (Vit D3) 1000 Unit (25 Mcg) Tab PO Not Given QDAY MT Dextrose 0 ml 01/20/21 22:12 Dextrose 50% In Water (25gm) 50 Ml Syringe IV Q30MIN PRN Hypoglycemia Protocol Dextrose 50 ml 01/21/21 18:56 Dextrose 50% In Water (25gm) 50 Ml Syringe IV Q30MIN PRN Hypoglycemia Protocol Enoxaparin Sodium 40 mg 01/21/21 22:00 01/21/21 21:57 Enoxaparin 40 Mg/0.4 Ml Inj SUB-Q 40 mg QDAY@2200 MT Administration Protocol Famotidine 20 mg 01/21/21 22:00 01/21/21 21:57 Famotidine 20 Mg Tab PO 20 mg BID MT Administration Hydromorphone HCl 0.25 mg 01/20/21 15:32 Hydromorphone 1 Mg/1 Ml Inj IV Q4H PRN Pain, Moderate (4-6) Hydromorphone HCl 0.5 mg 01/20/21 15:32 Hydromorphone 1 Mg/1 Ml Inj IV Q23H PRN Pain , Severe (7-10) Ceftriaxone Sodium 2 gm in 100 mls @ 200 mls/hr 01/20/21 17:00 01/21/21 17:20 Rocephin/Ns 2 Gm/100 Ml IV 200 mls/hr Q24H MT Administration Protocol Azithromycin 500 mg in 250 mls @ 250 mls/hr 01/20/21 17:00 01/21/21 17:21 Zithromax/Ns IV 250 mls/hr Q24H MT Administration Protocol Potassium Chloride/Dextrose/Sod Cl 40 meq in 1,000 mls @ 125 mls/hr 01/21/21 07:00 01/21/21 12:51 D5w/0.45% Nacl/Kcl 40 Meq IV 125 mls/hr DIRECT MT Administration Magnesium Sulfate 2 gm in 50 mls @ 25 mls/hr 01/21/21 21:30 01/21/21 21:57 Magnesium Sulfate 2gm/50ml IV 01/21/21 23:29 25 mls/hr ONCE ONE Administration Sodium Phosphate 30 mmol/ 510 mls @ 125 mls/hr 01/21/21 20:00 01/21/21 21:57 Sodium Chloride IV 01/22/21 00:04 125 mls/hr ONCE ONE Administration Insulin Human Lispro 0 unit 01/21/21 19:05 01/21/21 20:25 Insulin Lispro 100 Unit/Ml SUB-Q Not Given Q4H [facility] Protocol Oxycodone/Acetaminophen 1 tab 01/20/21 15:32 Oxycodone /Acetaminophen 5-325mg Tab PO Q16H PRN Pain, Moderate (4-6) Sodium Chloride 10 ml 01/20/21 22:00 01/21/21 21:58 Sodium Chloride 0.9% 10 Ml Flush Syringe IV 10 ml BID MT Administration Sodium Chloride 10 ml 01/20/21 15:32 Sodium Chloride 0.9% 10 Ml Flush Syringe IV PRN PRN LINE FLUSH Zinc Sulfate 220 mg 01/20/21 22:00 01/21/21 21:58 Zinc Sulfate 220 Mg Cap PO 220 mg BID MT Administration Nutrition/Malnutrition Assess - Dietary Evaluation Nutrition/Malnutrition Findings: Nutrition Notes Start: 01/21/21 12:41 Freq: Status: Active Protocol: Document 01/21/21 12:41 JEYSON (Rec: 01/21/21 12:52 JEYSON [id number]) Nutrition Notes Need for Assessment generated from: MD Order,time study clerk,MST Initial or Follow up Assessment Current Diagnosis Acute Kidney Injury,Diabetes, Sepsis,Respiratory Failure Other Pertinent Diagnosis DKA, SOB, r/o COVID-19, mental health d/o Current Diet NPO Labs/Tests Phos 1.2 CO2 - 14 Na 133 BG 160 Pertinent Medications Vit C and D3, Zinc sulfate, Insulin gtt, Solumedrol, Na bicarb, D5 1/2NS + 40mEq KCl at 125ml/hr Height 5 ft 11 in Weight 77.111 kg [place] Body Weight (kg) 78.18 BMI 23.7 Weight Status Appropriate Subjective/Other Information RD consulted for diet education and NTR recommendations; pt also screened for malnutrition risk and new onset DM. Pt with hx of medication noncompliance. He was admitted with s/s of hyperglycemia. BG upon admission was 649. Pt on enhanced precaution for COVID- 19; attempted to call pt several times for malnutrition risk assessment, but he is not answering phone. Burn Absent Trauma Absent Minimum of two criteria No #1 Nutrition Diagnosis Altered nutrition-related laboratory values Etiology hx of medication noncompliance , uncontrolled DM As Evidenced by Signs and Symptoms BG upon admission 649 Is patient on ventilator? No Is Patient Ambulatory and/or Out of Bed No REE-([facility]-confined to bed) [phone] Calculation Used for Recommendations [facility] Additional Notes Pro needs 1.2-2g/k-154g/ day Fluid needs 1ml/kcal Nutrition Intervention Change Diet Order: Advance diet to Consistent CHO when medically feasible Goal #1 Improved BG control Goal #2 Diet advancement to meet nutrient needs Anticipated Discharge Needs: CHO-controlled diet; take medications as prescribed Follow-Up By: 01/25/21 Additional Comments F/U: diet advancement, diet education needs, MST assessment
[2021-01-21 16:38] LABS: BUN/Creatinine Ratio 10; Blood Urea Nitrogen 9 mg/dL (9-20); Calcium 8.3 mg/dL (8.4-10.2); Hemolysis Index 7
--- NOTE | 2021-01-21 16:40 | Consultation ---
History of Present Illness Consult date: 01/21/21 Requesting physician: KIRSTIE VORA Reason for consult: other (DKA) History of present illness: PULMONARY/CCM CONSULT NOTE (Full dictation # [id number]) Please see dictated notes for full details Past History Past Medical History: hypertension Past Surgical History: No surgical history, Other (Reviewed) Social history: single. denies: smoking, alcohol abuse Family history: diabetes, hypertension Medications and Allergies Allergies Allergy/AdvReac Type Severity Reaction Status Date / Time No Known Allergies Allergy Verified 01/20/21 12:09 Home Medications Medication Instructions Recorded Confirmed Last Taken Type No Known Home Medications [No 01/20/21 01/20/21 Unknown History Reported Home Medications] Active Meds: Active Medications Acetaminophen (Acetaminophen 325 Mg Tab) 650 mg PO Q6H PRN PRN Reason: Pain MILD(1-3)/Fever >100.5/CONSTANTINO Albuterol (Albuterol 2.5 Mg/3 Ml Nebu) 2.5 mg IH Q3HRT PRN PRN Reason: Shortness Of Breath Ascorbic Acid (Ascorbic Acid 500 Mg Tab) 500 mg PO BID [facility] Last Admin: 01/21/21 10:18 Dose: Not Given Documented by: Cholecalciferol (Cholecalciferol (Vit D3) 1000 Unit (25 Mcg) Tab) 1,000 unit PO QDAY [facility] Last Admin: 01/21/21 10:18 Dose: Not Given Documented by: Dextrose (Dextrose 50% In Water (25gm) 50 Ml Syringe) 0 ml IV Q30MIN PRN; Protocol PRN Reason: Hypoglycemia Famotidine (Famotidine 20 Mg Tab) 20 mg PO BID [facility] Hydromorphone HCl (Hydromorphone 1 Mg/1 Ml Inj) 0.25 mg IV Q4H PRN PRN Reason: Pain, Moderate (4-6) Hydromorphone HCl (Hydromorphone 1 Mg/1 Ml Inj) 0.5 mg IV Q23H PRN PRN Reason: Pain , Severe (7-10) Insulin Human Regular 100 (units/ Sodium Chloride) 100 mls @ 7 mls/hr IV TITR [facility]; Protocol Last Titration: 01/21/21 15:08 Dose: 12 units/hr, 12 mls/hr Documented by: Ceftriaxone Sodium (Rocephin/Ns 2 Gm/100 Ml) 2 gm in 100 mls @ 200 mls/hr IV Q24H MT; Protocol Last Admin: 01/20/21 17:53 Dose: 200 mls/hr Documented by: Azithromycin (Zithromax/Ns) 500 mg in 250 mls @ 250 mls/hr IV Q24H MT; Protocol Last Admin: 01/20/21 17:53 Dose: 250 mls/hr Documented by: Potassium Chloride/Dextrose/Sod Cl (D5w/0.45% Nacl/Kcl 40 Meq) 40 meq in 1,000 mls @ 125 mls/hr IV DIRECT MT Last Admin: 01/21/21 12:51 Dose: 125 mls/hr Documented by: Oxycodone/Acetaminophen (Oxycodone /Acetaminophen 5-325mg Tab) 1 tab PO Q16H PRN PRN Reason: Pain, Moderate (4-6) Potassium Chloride (Potassium Chloride Er 20 Meq Tab) 40 meq PO ONCE ONE Stop: 01/21/21 17:25 Sodium Bicarbonate (Sodium Bicarb 8.4% 50 Meq/50 Ml Syringe) 50 meq IV Q6H MT Stop: 01/21/21 16:59 Last Admin: 01/21/21 11:37 Dose: 50 meq Documented by: Sodium Chloride (Sodium Chloride 0.9% 10 Ml Flush Syringe) 10 ml IV BID [facility] Last Admin: 01/21/21 10:04 Dose: 10 ml Documented by: Sodium Chloride (Sodium Chloride 0.9% 10 Ml Flush Syringe) 10 ml IV PRN PRN PRN Reason: LINE FLUSH Zinc Sulfate (Zinc Sulfate 220 Mg Cap) 220 mg PO BID [facility] Last Admin: 01/21/21 10:18 Dose: Not Given Documented by: Physical Examination Vital signs: Vital Signs Pulse Resp BP Pulse Ox 137 H 34 H 127/100 99 01/20/21 12:07 01/20/21 12:07 01/20/21 12:07 01/20/21 12:07 Results - Laboratory Findings CBC and BMP: 01/21/21 12:58 01/21/21 14:44 PT/INR, D-dimer D-Dimer 223.16 ng/mlDDU (0-234) 01/20/21 12:35 Abnormal lab findings: Abnormal Labs 01/20/21 01/20/21 01/20/21 12:32 12:32 12:35 WBC 15.8 H RBC 5.34 H Hgb 16.8 H Hct 53.0 H MCV 99 H RDW Lymph % (Auto) 12.0 L Seg Neutrophils % 83.6 H Seg Neutrophils # 13.2 H VBG pH Sodium 127 L Potassium Chloride 85.9 L Carbon Dioxide 4 L* Creatinine 1.5 H Glucose 649 H* 637 H* POC Glucose Lactic Acid Calcium Phosphorus Ferritin Alkaline Phosphatase 164 H Lactate Dehydrogenase 213 H Total Protein 8.5 H 01/20/21 01/20/21 01/20/21 12:35 15:09 15:09 WBC RBC Hgb Hct MCV RDW Lymph % (Auto) Seg Neutrophils % Seg Neutrophils # VBG pH 7.003 L* Sodium Potassium Chloride Carbon Dioxide Creatinine Glucose POC Glucose Lactic Acid Calcium Phosphorus 5.10 H Ferritin 1371.0 H Alkaline Phosphatase Lactate Dehydrogenase Total Protein 01/20/21 01/20/21 01/20/21 15:52 15:52 17:19 WBC RBC Hgb Hct MCV RDW Lymph % (Auto) Seg Neutrophils % Seg Neutrophils # VBG pH Sodium 126 L Potassium Chloride 91.1 L Carbon Dioxide 3 L* Creatinine 1.4 H Glucose 584 H* POC Glucose 448 H Lactic Acid 3.50 H* Calcium Phosphorus Ferritin Alkaline Phosphatase Lactate Dehydrogenase Total Protein 01/20/21 01/20/21 01/20/21 19:49 22:01 23:07 WBC RBC Hgb Hct MCV RDW Lymph % (Auto) Seg Neutrophils % Seg Neutrophils # VBG pH Sodium 132 L Potassium Chloride Carbon Dioxide 6 L* Creatinine Glucose 245 H POC Glucose 162 H 153 H Lactic Acid Calcium 8.1 L Phosphorus Ferritin Alkaline Phosphatase Lactate Dehydrogenase Total Protein 01/20/21 01/21/21 01/21/21 23:41 00:05 00:53 WBC RBC Hgb Hct MCV RDW Lymph % (Auto) Seg Neutrophils % Seg Neutrophils # VBG pH Sodium 129 L Potassium Chloride Carbon Dioxide 9 L* Creatinine Glucose 171 H POC Glucose 155 H 195 H Lactic Acid Calcium Phosphorus Ferritin Alkaline Phosphatase Lactate Dehydrogenase Total Protein 01/21/21 01/21/21 01/21/21 02:02 03:05 04:08 WBC RBC Hgb Hct MCV RDW Lymph % (Auto) Seg Neutrophils % Seg Neutrophils # VBG pH Sodium Potassium Chloride Carbon Dioxide Creatinine Glucose POC Glucose 238 H 245 H 186 H Lactic Acid Calcium Phosphorus Ferritin Alkaline Phosphatase Lactate Dehydrogenase Total Protein 01/21/21 01/21/21 01/21/21 04:43 04:58 06:00 WBC RBC Hgb Hct MCV RDW Lymph % (Auto) Seg Neutrophils % Seg Neutrophils # VBG pH Sodium 132 L Potassium Chloride Carbon Dioxide 13 L Creatinine Glucose 179 H POC Glucose 180 H 180 H Lactic Acid Calcium Phosphorus Ferritin Alkaline Phosphatase Lactate Dehydrogenase Total Protein 01/21/21 01/21/21 01/21/21 06:54 08:00 09:13 WBC RBC Hgb Hct MCV RDW Lymph % (Auto) Seg Neutrophils % Seg Neutrophils # VBG pH Sodium 133 L Potassium Chloride Carbon Dioxide 14 L Creatinine Glucose 160 H POC Glucose 138 H 174 H Lactic Acid Calcium Phosphorus 1.20 L D Ferritin Alkaline Phosphatase Lactate Dehydrogenase Total Protein 01/21/21 01/21/21 01/21/21 10:16 12:58 14:17 WBC 19.9 H RBC Hgb Hct MCV RDW 13.1 L Lymph % (Auto) Seg Neutrophils % Seg Neutrophils # VBG pH Sodium Potassium Chloride Carbon Dioxide Creatinine Glucose POC Glucose 187 H 234 H Lactic Acid Calcium Phosphorus Ferritin Alkaline Phosphatase Lactate Dehydrogenase Total Protein 01/21/21 01/21/21 01/21/21 14:44 15:06 16:01 WBC RBC Hgb Hct MCV RDW Lymph % (Auto) Seg Neutrophils % Seg Neutrophils # VBG pH Sodium 136 L Potassium 3.5 L Chloride Carbon Dioxide 12 L Creatinine Glucose 196 H POC Glucose 205 H 187 H Lactic Acid Calcium 8.3 L Phosphorus Ferritin Alkaline Phosphatase Lactate Dehydrogenase Total Protein
[2021-01-21] MEDS: cefTRIAXone/NS 2 GM/100 ML 2 GM/100 ML BAG IV SCH (17:20)
[2021-01-21] MEDS: AZITHROMYCIN/NS 500 MG/250 ML 500 MG/250 ML BAG IV SCH (17:21)
[2021-01-21] MEDS ORDERED: POTASSIUM CHLORIDE ER 20 MEQ TAB PO ONE (17:24)
[2021-01-21] MEDS ORDERED: DEXTROSE 50% IN WATER (25GM) 50 ML SYRINGE IV PRN (18:56)
[2021-01-21] MEDS ORDERED: INSULIN GLARGINE 100 UNITS/ML SUB-Q STA (19:04)
[2021-01-21 19:07] LABS: BUN/Creatinine Ratio 10; Blood Urea Nitrogen 8 mg/dL (9-20); Calcium 8.5 mg/dL (8.4-10.2); Hemolysis Index 17
[2021-01-21] MEDS ORDERED: SODIUM PHOSPHATE 30 MMOL in SODIUM CHLORIDE 0.9% 500 ML 500 ML IV ONE (20:00)
[2021-01-21] MEDS: INSULIN LISPRO 100 UNIT/ML SUB-Q SCH ×2 (20:25→23:53)
[2021-01-21] MEDS ORDERED: POTASSIUM PHOSPHATE 15 MMOL in SODIUM CHLORIDE 0.9% 250ML 250 ML IV ONE (21:00)
[2021-01-21] MEDS ORDERED: MAGNESIUM SULFATE 2 GM/50 ML BAG IV ONE (21:30)
[2021-01-21] MEDS: ENOXAPARIN 40 MG/0.4 ML INJ SUB-Q SCH (21:57)
[2021-01-21] MEDS: FAMOTIDINE 20 MG TAB PO SCH (21:57)
--- NOTE | 2021-01-22 01:27 | Consultation ---
DATE OF CONSULTATION: 01/21/2021 PULMONARY AND CRITICAL CARE CONSULTATION NOTE CONSULTING PHYSICIAN: Dr. Etienne Keita. REASON FOR CONSULTATION: Diabetic ketoacidosis, new onset diabetes. CHIEF COMPLAINT AND HISTORY OF PRESENT ILLNESS: The patient is a 30-year-old male with past medical history significant amongst other things for a diagnosis of hypertension, tobacco abuse, regular medical noncompliance, came into the Emergency Room, complaining of just not feeling good. He had been experiencing shortness of breath, fatigue, weakness, body aches, complained of polydipsia, polyuria. It had been going on really for about a week he tells me, but he developed worsening symptoms over the same timeframe. He also developed nausea and vomiting and hence, he came to the ER to get checked in the Emergency Room. He was hypoxemic. He had evidence of a systemic inflammatory response syndrome and he was hypoxemic. He was ultimately diagnosed with diabetic ketoacidosis, but also an acute kidney injury and he was septic. He was admitted in intensive care unit on DKA protocol where I stopped by to see him. When I stopped by to see him, he remained on the insulin drip at about 4 units per hour. He denied any continued vomiting. He was feeling better. He denies gross or streaky hemoptysis. He denies any sick contacts. He denies any contact with anybody with known COVID-19 infection. This is really as much of the history of presentation as I have. PAST MEDICAL HISTORY: Hypertension, tobacco abuse. PAST SURGICAL HISTORY: Denied. MEDICATIONS: He was on at the time I stopped by to see him were reviewed, pertinent medications were included the following: Tylenol 650 mg p.o. q. 6 hours p.r.n. mild pain or fevers, albuterol 2.5 mg nebulized q. 3 hours p.r.n. shortness of breath, vitamin C 500 mg p.o. b.i.d., azithromycin 500 mg IV daily, Rocephin 2 grams IV daily, vitamin D3 1000 units p.o. daily, Pepcid 20 mg p.o. b.i.d., Dilaudid 0.25 mg IV q. 4 hours and p.r.n. moderate pain and 0.5 mg IV q. 3 hours p.r.n. severe pain, insulin drip was going at 7 units per hour. Percocet 5/325 one tablet p.o. q. 6 hours p.r.n. moderate pain, zinc sulfate 220 mg p.o. b.i.d. ALLERGIES: No known drug allergies. DIET: Thin gentleman. He has lost some weight in the preceding few weeks to months. FAMILY AND SOCIAL HISTORY: Lives in the community. Denies alcohol, illicit drug use or abuse. He gives a less than 50-[id number] tobacco smoking history. There is a family history of diabetes and hypertension. REVIEW OF SYSTEMS: No loss of consciousness. No new onset seizures. No new onset focal weakness. He had polydipsia and polyuria. He denies gross or streaky hemoptysis. He denies any seizures. He denies any heat or cold intolerance. A complete 13-system review of system was obtained. Pertinent positives and/or negatives as in body of history above, otherwise they are noncontributory. PHYSICAL EXAMINATION: VITAL SIGNS: On presentation in the Emergency Room, review of vital signs shows that he was afebrile. Initial temperature I see was 98.4 with a pulse of 90, respiratory rate initially at presentation was 34. Initial pulse was 137, blood pressure 127/100, O2 sats 99%, inspired oxygen concentration was not recorded. When I stopped by to see him, his O2 sats were 98% that was on room air. GENERAL: He is a young female. Normocephalic, atraumatic, talking to me in full sentences with mildly increased respiratory effort at rest. HEAD, EYES, EARS, NOSE AND THROAT: Anicteric. No conjunctival erythema. Oropharynx was moist. No gross jugular venous distention, no thyromegaly. Grossly, there were no palpable lymph nodes in the supraclavicular or submandibular lymph node chains. LUNGS: Auscultation of both lung hernandez unremarkable. Lungs are clear bilaterally with good bilateral air movement. HEART: Sounds 1 and 2 are heard, regular rate and rhythm at the time of my evaluation without overt rubs or murmurs. ABDOMEN: Soft, flat, bowel sounds are positive, nontender, no palpable hepatosplenomegaly. EXTREMITIES: Without overt digital clubbing or cyanosis, no pedal edema. Pedal pulses are 2+ bilaterally. NEUROLOGIC: Pupils are equal, round, about 4 mm, reactive to light. Extraocular muscle movements are intact. He moves all 4 extremities spontaneously. SKIN: Normal turgor without overt cellulitis or rash. Please see the wound care nurses' notes for full description of his skin. PSYCHIATRIC: Mood was normal. Affect was appropriate. He had intact judgment and insight. LABORATORY DATA: From my review, admission white cell count 15,600, hemoglobin 16.8, hematocrit 53, platelet count 345. D-dimer was within normal limits. Venous blood gas showed a pH of 7.00. Serum sodium was 126, potassium 4.9, chloride 91, bicarbonate was 3, BUN was 15, creatinine was 1.4, glucose was 584. Anion gap was 37. Liver function tests essentially within normal limits. Ferritin was up at 1371. CRP within normal limits. Procalcitonin 0.36. Urinalysis was negative for nitrites and leukocyte esterase. He was spilling glucose. Urine drug screen was presumptive negative. Coronavirus PCR test has now come back negative. Two sets of blood cultures, no growth to date. Chest x-ray was clear and unremarkable chest x-ray. He also had a CT scan of his chest. It was a CT angiogram, not the best contrast phase timing, no large other filling defects consistent with pulmonary emboli. The lung windows showed paraseptal emphysema involving mostly the upper lobes, but really extending lower also. ASSESSMENT: 1. Diabetic ketoacidosis. 2. New onset diabetes. 3. Person under investigation for COVID-19 infection. 4. Systemic inflammatory response syndrome. 5. Acute hypoxemic respiratory failure at presentation. 6. Hemoconcentration. 7. Leukocytosis. 8. Severe metabolic acidosis. 9. Acute kidney injury. 10. Elevated serum inflammatory markers to include the serum ferritin. PLAN: He will continue on DKA protocol. His gap is slowly closing. Last gap I saw was 26. He will continue on the IV insulin D5 half NS drip as necessary with Accu-Cheks as necessary. Oxygen will be offered to keep sats greater than or equal to about 90%. Aspiration precautions have maintained. Coronavirus PCR, PUI testing is negative. We will discontinue isolation. I will also discontinue the empiric community-acquired pneumonia therapy. I am bothered about the fact that this gentleman has this amount of paraseptal emphysema. He will benefit from pulmonary function testing and pulmonary clinic followup. Tobacco abstinence has been strongly counseled and I have gone back to reconsult him, especially after seeing his CT scan. He is otherwise appropriately on GI prophylaxis. He will be placed on DVT prophylaxis. Flu and pneumonia vaccination will be addressed per protocol. Thank you very much for the consult. We will follow along and make further recommendations as picture progresses/becomes clearer. TID: [id number] RECEIPT: [id number] [place]OL[place]/JOAN
[2021-01-22 02:45] LABS: Hematocrit 34.8 % (35.5-45.6); Mean Corpuscular HGB Conc 35 % (32-34); Mean Corpuscular Volume 90 fl (84-94); Platelet Count 228 K/mm3 (140-440); Red Blood Count 3.86 M/mm3 (3.65-5.03); Red Cell Distribution Width 13.5 % (13.2-15.2)
[2021-01-22 03:00] LABS: BUN/Creatinine Ratio 10; Blood Urea Nitrogen 7 mg/dL (9-20); Calcium 7.8 mg/dL (8.4-10.2); Hemolysis Index 9
[2021-01-22] MEDS: INSULIN LISPRO 100 UNIT/ML SUB-Q SCH ×4 (04:44→22:58)
[2021-01-22 09:16] LABS: Blood Urea Nitrogen 7 mg/dL (9-20); Calcium 8.3 mg/dL (8.4-10.2); Hemolysis Index 20
[2021-01-22 09:17] LABS: BUN/Creatinine Ratio 10
[2021-01-22] MEDS: CHOLECALCIFEROL (VIT D3) 1000 UNIT (25 mcg) TAB PO SCH (09:43)
[2021-01-22] MEDS: ZINC SULFATE 220 MG CAP PO SCH ×2 (09:44→22:58)
[2021-01-22] MEDS: ASCORBIC ACID 500 MG TAB PO SCH ×2 (09:44→22:57)
[2021-01-22] MEDS: FAMOTIDINE 20 MG TAB PO SCH ×2 (09:44→22:57)
[2021-01-22] MEDS ORDERED: POTASSIUM CHLORIDE ER 20 MEQ TAB PO SCH (10:00)
[2021-01-22] MEDS ORDERED: POTASSIUM CHLORIDE ER 20 MEQ TAB PO NR (15:30)
[2021-01-22] MEDS: INSULIN GLARGINE 100 UNITS/ML SUB-Q SCH (15:56)
--- NOTE | 2021-01-22 16:00 | Event Note ---
Date: 01/22/21 doing better and off IV insulin / DKA protocol - transfer to floor - please re-consult as needed
[2021-01-22] MEDS: AZITHROMYCIN/NS 500 MG/250 ML 500 MG/250 ML BAG IV SCH (16:44)
[2021-01-22] MEDS: cefTRIAXone/NS 2 GM/100 ML 2 GM/100 ML BAG IV SCH (16:44)
--- NOTE | 2021-01-22 17:37 | Progress Note ---
Assessment and Plan Assessment and plan: This is a [id number] AA Male with a history of HTN, noncompliant with meds, depression, and nicotine dependence who came complaining of not feeling good. Patient states that he has experienced shortness of breath, fatigue, weakness, body aches, nausea, polydipsia, polyuria over the past 1 week with persistent and worsening symptoms over the same timeframe. In the ED patient was tachycardic, tachypneic, hypoxic with SPO2 at 87% on RA. Patient was found to be in DKA and metabolic acidosis, DKA protocol was initiated. Patient was then transferred to ICU for further management. Hospital Course to Date: 01/21/21- Patient remains on DKA protocol, repeat labs pending to f/u on GAP. Electrolytes replaced, renal function improved. Will continue to monitor electrolytes and renal function, serial labs ordered 01/22/21- Patient was transitioned to SubQ insulin overnight, remains hyperglycemic SSI and basal insulin adjusted. Hypokalemia was repleted, will recheck in the am. Orders placed for diabetic education and rec nurse for disease monitoring after discharge. Patient voiced financial concerns, case management to discuss possible available resources with patient. Patient is stable for transfer to the floor. Assessment and Plan #Neuro:Anxiety - Patient is currently calm and cooperative - Stated he takes zyprexa for depression but can't remember the dosage, to bring home meds today - Avoid benzodiazepine at this time - Prn analgesia for CPOT greater than 3 - Maintenance of sleep-wake cycle, avoid delirium #CV:Tachycardia #H/o HTN - Remains ST on the monitor - Patient is normotensive - Continue blood pressure monitor per protocol - Maintain SBP less than 160 - Consider PRN antihypertensive if HTN - Continue AC- Lovenox and SCDs for VTE proph #Acute Hypoxemic Respiratory Failure 2/2 metabolic acidosis- resolved #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 Paraseptal emphysema - Initial 87% on RA - Currently 99% to 100% on RA - Acidosis resolved - COVID swab neg - Continue SPO2 monitoring and supplemental oxygen as needed for SPO2 less than 90% - Smocking cessation education #GI: NAP - Diet order placed - Continue PPI- Pecid BID #:Hypokalemia #Hyponatremia-= resolved #Hypophosphatemia- improved - Electrolytes repleted - Renal function improved - Stright I&Os - Avoid nephrotoxic medications; Renally dose medications - Continue to monitor renal status and electrolytes - AM labs ordered #Leukocytosis #Metabolic Acidosis- resolved #Lactic Acidosis- resolved - Probably related to the DKA - Lactic as high as 3.5--->1.1 - Leukocytosis downtrending 18.9 today - Imagings are unremarkable - COVID swab neg - Blood culture pending - Procal and CRP are normal - Patient remains afebrile - Continue empiric ABx- Rocephin and Azithromycin for now - Continue to F/U on B.cult - Daily CBC monitor - Consider ID consult if febrile or/and if leukocytosis persists #DKA (diabetic ketoacidosis) #Hyperglycemia - Transitioned to SUBQ insulin - On insulin drip D/C - Continue SSI, scale adjusted - Continue basal dose insulin - Avoid hypoglycemia The high probability of a clinically significant, sudden or life threatening deterioration of the [ID, Endo, ] system(s) required my full and direct attention, intervention and personal management. The aggregate critical care time was [40] minutes. This time is in addition to time spent performing reported procedures but includes the following: [x] Data Review and interpretation [x] Patient assessment and monitoring of vital signs [x] Documentation [x] Medication orders and management Disposition Plan: ICU Total Time Spent with Patient (Minutes): 40 History Interval history: Patient seen and examined at the bedside. Fully AAO, pleasant on RA. No significant events overnight Hospitalist Physical - Constitutional Vitals: Temp Pulse Resp BP Pulse Ox 98.2 F 101 H 16 124/81 99 01/22/21 16:05 01/22/21 17:00 01/22/21 17:00 01/22/21 17:00 01/22/21 17:00 General appearance: Present: no acute distress, mild distress - EENT Eyes: Present: PERRL ENT: hearing intact, clear oral mucosa - Neck Neck: Present: normal ROM - Respiratory Respiratory effort: normal Respiratory: bilateral: CTA - Cardiovascular Rhythm: regular Heart Sounds: Present: S1 & S2 - Extremities Extremities: no ischemia, pulses intact, pulses symmetrical Peripheral Pulses: within normal limits - Abdominal General gastrointestinal: soft, non-tender, normal bowel sounds - Integumentary Integumentary: Present: clear, warm, dry - Psychiatric Psychiatric: appropriate mood/affect, cooperative - Neurologic Neurologic: CNII-XII intact, moves all extremities - Allied Health Allied health notes reviewed: nursing Results - Labs CBC & Chem 7: 01/22/21 02:30 01/22/21 08:39 Labs: Laboratory Last Values WBC 18.9 K/mm3 (4.5-11.0) H 01/22/21 02:30 RBC 3.86 M/mm3 (3.65-5.03) 01/22/21 02:30 Hgb 12.0 gm/dl (11.8-15.2) 01/22/21 02:30 Hct 34.8 % (35.5-45.6) L 01/22/21 02:30 MCV 90 fl (84-94) 01/22/21 02:30 MCH 31 pg (28-32) 01/22/21 02:30 MCHC 35 % (32-34) H 01/22/21 02:30 RDW 13.5 % (13.2-15.2) 01/22/21 02:30 Plt Count 228 K/mm3 (140-440) 01/22/21 02:30 Lymph % (Auto) 12.0 % (13.4-35.0) L 01/20/21 12:32 [place] % (Auto) 3.9 % (0.0-7.3) 01/20/21 12:32 Eos % (Auto) 0.0 % (0.0-4.3) 01/20/21 12:32 Baso % (Auto) 0.5 % (0.0-1.8) 01/20/21 12:32 Lymph # (Auto) 1.9 K/mm3 (1.2-5.4) 01/20/21 12:32 [place] # (Auto) 0.6 K/mm3 (0.0-0.8) 01/20/21 12:32 Eos # (Auto) 0.0 K/mm3 (0.0-0.4) 01/20/21 12:32 Baso # (Auto) 0.1 K/mm3 (0.0-0.1) 01/20/21 12:32 Seg Neutrophils % 83.6 % (40.0-70.0) H 01/20/21 12:32 Seg Neutrophils # 13.2 K/mm3 (1.8-7.7) H 01/20/21 12:32 D-Dimer 223.16 ng/mlDDU (0-234) 01/20/21 12:35 VBG pH 7.003 (7.320-7.420) L* 01/20/21 15:09 Sodium 133 mmol/L (137-145) L 01/22/21 08:39 Potassium 3.4 mmol/L (3.6-5.0) L 01/22/21 08:39 Chloride 100.0 mmol/L (98-107) 01/22/21 08:39 Carbon Dioxide 20 mmol/L (22-30) L 01/22/21 08:39 Anion Gap 16 mmol/L 01/22/21 08:39 BUN 7 mg/dL (9-20) L 01/22/21 08:39 Creatinine 0.7 mg/dL (0.8-1.3) L 01/22/21 08:39 Estimated GFR > 60 ml/min 01/22/21 08:39 BUN/Creatinine Ratio 10 % 01/22/21 08:39 Glucose 347 mg/dL (75-100) H 01/22/21 08:39 POC Glucose 243 mg/dL (70-105) H 01/22/21 15:47 Hemoglobin A1c 13.0 % (4-6) H 01/22/21 08:39 Lactic Acid 1.10 mmol/L (0.7-2.0) 01/20/21 23:41 Calcium 8.3 mg/dL (8.4-10.2) L 01/22/21 08:39 Phosphorus 2.90 mg/dL (2.5-4.5) D 01/22/21 02:30 Magnesium 2.20 mg/dL (1.7-2.3) 01/22/21 02:30 Ferritin 1371.0 ng/mL (30.0-300.0) H 01/20/21 12:35 Total Bilirubin 0.40 mg/dL (0.1-1.2) 01/20/21 12:32 AST 13 units/L (5-40) 01/20/21 12:32 ALT 30 units/L (7-56) 01/20/21 12:32 Alkaline Phosphatase 164 units/L (35-129) H 01/20/21 12:32 Lactate Dehydrogenase 213 units/L (91-180) H 01/20/21 12:35 C-Reactive Protein 0.30 mg/dL (0.00-1.30) 01/20/21 12:35 Total Protein 8.5 g/dL (6.3-8.2) H 01/20/21 12:32 Albumin 4.9 g/dL (3.9-5) 01/20/21 12:32 Albumin/Globulin Ratio 1.4 % 01/20/21 12:32 Procalcitonin 0.36 ng/mL (<0.15) 01/20/21 12:35 Urine Color Straw (Yellow) 01/20/21 Unknown Urine Turbidity Clear (Clear) 01/20/21 Unknown Urine pH 5.0 (5.0-7.0) 01/20/21 Unknown Ur Specific Burden 1.024 (1.003-1.030) 01/20/21 Unknown Urine Protein 100 mg/dl mg/dL (Negative) 01/20/21 Unknown Urine Glucose (UA) >=500 mg/dL (Negative) 01/20/21 Unknown Urine Ketones 80 mg/dL (Negative) 01/20/21 Unknown Urine Blood Mod (Negative) 01/20/21 Unknown Urine Nitrite Neg (Negative) 01/20/21 Unknown Urine Bilirubin Neg (Negative) 01/20/21 Unknown Urine Urobilinogen < 2.0 mg/dL (<2.0) 01/20/21 Unknown Ur Leukocyte Esterase Neg (Negative) 01/20/21 Unknown Urine WBC (Auto) 1.0 /HPF (0.0-6.0) 01/20/21 Unknown Urine RBC (Auto) 1.0 /HPF (0.0-6.0) 01/20/21 Unknown U Epithel Cells (Auto) 1.0 /HPF (0-13.0) 01/20/21 Unknown Urine Mucus 1+ /HPF 01/20/21 Unknown Urine Opiates Screen Negative 01/20/21 Unknown Urine Methadone Screen Negative 01/20/21 Unknown Ur Barbiturates Screen Negative 01/20/21 Unknown Ur Phencyclidine Scrn Negative 01/20/21 Unknown Ur Amphetamines Screen Negative 01/20/21 Unknown U Benzodiazepines Scrn Negative 01/20/21 Unknown Urine Cocaine Screen Negative 01/20/21 Unknown U Marijuana (THC) Screen Negative 01/20/21 Unknown Drugs of Abuse Note Disclamer 01/20/21 Unknown Coronavirus (PCR) Negative (Negative) 01/21/21 Unknown Microbiology: Microbiology 01/20/21 15:52 Peripheral/Venous Blood Culture - Preliminary NO GROWTH AFTER 24 HOURS 01/20/21 15:52 Peripheral/Venous Blood Culture - Preliminary NO GROWTH AFTER 24 HOURS Active Medications - Current Medications Current Medications: Generic Name Dose Route Start Last Admin Trade Name Freq PRN Reason Stop Dose Admin Acetaminophen 650 mg 01/20/21 15:32 Acetaminophen 325 Mg Tab PO Q6H PRN Pain MILD(1-3)/Fever >100.5/CONSTANTINO Albuterol 2.5 mg 01/20/21 15:32 Albuterol 2.5 Mg/3 Ml Nebu IH Q3HRT PRN Shortness Of Breath Ascorbic Acid 500 mg 01/20/21 22:00 01/22/21 09:44 Ascorbic Acid 500 Mg Tab PO 500 mg BID MT Administration Cholecalciferol 1,000 unit 01/21/21 10:00 01/22/21 09:43 Cholecalciferol (Vit D3) 1000 Unit (25 Mcg) Tab PO 1,000 unit QDAY MT Administration Dextrose 0 ml 01/20/21 22:12 Dextrose 50% In Water (25gm) 50 Ml Syringe IV Q30MIN PRN Hypoglycemia Protocol Dextrose 50 ml 01/21/21 18:56 Dextrose 50% In Water (25gm) 50 Ml Syringe IV Q30MIN PRN Hypoglycemia Protocol Enoxaparin Sodium 40 mg 01/21/21 22:00 01/21/21 21:57 Enoxaparin 40 Mg/0.4 Ml Inj SUB-Q 40 mg QDAY@2200 MT Administration Protocol Famotidine 20 mg 01/21/21 22:00 01/22/21 09:44 Famotidine 20 Mg Tab PO 20 mg BID MT Administration Hydromorphone HCl 0.25 mg 01/20/21 15:32 Hydromorphone 1 Mg/1 Ml Inj IV Q4H PRN Pain, Moderate (4-6) Hydromorphone HCl 0.5 mg 01/20/21 15:32 Hydromorphone 1 Mg/1 Ml Inj IV Q23H PRN Pain , Severe (7-10) Ceftriaxone Sodium 2 gm in 100 mls @ 200 mls/hr 01/20/21 17:00 01/22/21 16:44 Rocephin/Ns 2 Gm/100 Ml IV 01/24/21 17:29 200 mls/hr Q24H MT Administration Protocol Azithromycin 500 mg in 250 mls @ 250 mls/hr 01/20/21 17:00 01/22/21 16:44 Zithromax/Ns IV 01/24/21 17:59 250 mls/hr Q24H MT Administration Protocol Potassium Chloride/Dextrose/Sod Cl 40 meq in 1,000 mls @ 125 mls/hr 01/21/21 07:00 01/21/21 12:51 D5w/0.45% Nacl/Kcl 40 Meq IV 125 mls/hr DIRECT MT Administration Insulin Glargine 20 units 01/22/21 15:00 01/22/21 15:56 Insulin Glargine 100 Units/Ml SUB-Q 20 units Q24HR MT Administration Insulin Human Lispro 0 unit 01/22/21 16:30 01/22/21 16:37 Insulin Lispro 100 Unit/Ml SUB-Q 3 unit ACHS MT Administration Protocol Oxycodone/Acetaminophen 1 tab 01/20/21 15:32 Oxycodone /Acetaminophen 5-325mg Tab PO Q16H PRN Pain, Moderate (4-6) Potassium Chloride 40 meq 01/22/21 15:30 01/22/21 15:11 Potassium Chloride Er 20 Meq Tab PO 01/22/21 19:00 40 meq ONCE@1530 NR Administration Sodium Chloride 10 ml 01/20/21 22:00 01/22/21 09:44 Sodium Chloride 0.9% 10 Ml Flush Syringe IV 10 ml BID MT Administration Sodium Chloride 10 ml 01/20/21 15:32 Sodium Chloride 0.9% 10 Ml Flush Syringe IV PRN PRN LINE FLUSH Zinc Sulfate 220 mg 01/20/21 22:00 01/22/21 09:44 Zinc Sulfate 220 Mg Cap PO 220 mg BID MT Administration Nutrition/Malnutrition Assess - Dietary Evaluation Nutrition/Malnutrition Findings: Nutrition Notes Start: 01/21/21 12:41 Freq: Status: Active Protocol: Document 01/21/21 12:41 JEYSON (Rec: 01/21/21 12:52 JEYSON [email or web address]) Nutrition Notes Need for Assessment generated from: 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,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,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 Initial or Follow up Assessment Current Diagnosis Acute Kidney Injury,Diabetes, Sepsis,Respiratory Failure Other Pertinent Diagnosis DKA, SOB, r/o COVID-19, mental health d/o Current Diet NPO Labs/Tests Phos 1.2 CO2 - 14 Na 133 BG 160 Pertinent Medications Vit C and D3, Zinc sulfate, Insulin gtt, Solumedrol, Na bicarb, D5 1/2NS + 40mEq KCl at 125ml/hr Height 5 ft 11 in Weight 77.111 kg [place] Body Weight (kg) 78.18 BMI 23.7 Weight Status Appropriate Subjective/Other Information RD consulted for diet education and NTR recommendations; pt also screened for malnutrition risk and new onset DM. Pt with hx of medication noncompliance. He was admitted with s/s of hyperglycemia. BG upon admission was 649. Pt on enhanced precaution for COVID- 19; attempted to call pt several times for malnutrition risk assessment, but he is not answering phone. Burn Absent Trauma Absent Minimum of two criteria No #1 Nutrition Diagnosis Altered nutrition-related laboratory values Etiology hx of medication noncompliance , uncontrolled DM As Evidenced by Signs and Symptoms BG upon admission 649 Is patient on ventilator? No Is Patient Ambulatory and/or Out of Bed No REE-([facility]-confined to bed) 1412.466 Calculation Used for Recommendations [facility] Additional Notes Pro needs 1.2-2g/k-154g/ day Fluid needs 1ml/kcal Nutrition Intervention Change Diet Order: Advance diet to Consistent CHO when medically feasible Goal #1 Improved BG control Goal #2 Diet advancement to meet nutrient needs Anticipated Discharge Needs: CHO-controlled diet; take medications as prescribed Follow-Up By: 01/25/21 Additional Comments F/U: diet advancement, diet education needs, MST assessment
[2021-01-22] MEDS: ENOXAPARIN 40 MG/0.4 ML INJ SUB-Q SCH (22:57)
--- NOTE | 2021-01-23 10:15 | Progress Note ---
Assessment and Plan Assessment and plan: This is a 29-luihg-meg AA Male with a history of HTN, noncompliant with meds, depression, and nicotine dependence who came complaining of not feeling good. Patient states that he has experienced shortness of breath, fatigue, weakness, body aches, nausea, polydipsia, polyuria over the past 1 week with persistent and worsening symptoms over the same timeframe. In the ED patient was tachycardic, tachypneic, hypoxic with SPO2 at 87% on RA. Patient was found to be in DKA and metabolic acidosis, DKA protocol was initiated. Patient was then transferred to ICU for further management. Patient was stabilized on DKA pathway per protocol, transition to long-acting insulin transferred to medical floor, patient's blood sugars fluctuate adjusted insulin dose as needed, smoking cessation counseling done Assessment and plan: --COVID-19 negative --DKA (diabetic ketoacidosis) Patient was on DKA pathway Stabilized in ICU transition to long-acting insulin Patient is currently on 70/30 Novolin Moderate control, A1c 13.0 Diabetic education, nutrition education Possible discharge in 1 to 2 days if stable --New onset diabetes mellitus; A1c 13.0 Moderate control, increase Novolin 70/30 to 18 units twice a day Sliding scale coverage, ADA diet Diabetic education, nutrition education prior to discharge --Hyponatremia-; Pseudohyponatremia, secondary to hyperglycemia Significant improvement, monitor electrolytes --Hypophosphatemia; Electrolytes repleted, resolved Closely monitor electrolytes --Acute metabolic acidosis; present on admission, Due to DKA Resolved --Lactic acidosis; Resolved, SIRS, Cultures negative to date Empiric antibiotics, last dose tomorrow --SIRS ; leukocytosis, tachycardia On empiric antibiotics Rocephin and Zithromax Cultures negative to date, complete 5 days Patient has lactic acidosis, resolved --Ongoing tobacco use; Smoking cessation counseling done Risks and consequences of ongoing tobacco use explained in detail Spent 17 minutes, advised nicotine patch as needed Patient verbalized understanding --DVT prophylaxis; Subcu Lovenox --DC planning per case management We will closely monitor the patient and adjust management as needed Plan of care reviewed with the patient and his nurse Hospital Course to Date: 01/21/21- Patient remains on DKA protocol, repeat labs pending to f/u on GAP. Electrolytes replaced, renal function improved. Will continue to monitor electrolytes and renal function, serial labs ordered 01/22/21- Patient was Novolin 70/30 SubQ insulin overnight, remains hyperglycemic SSI and basal insulin adjusted. Hypokalemia was repleted, will recheck in the am. Orders placed for diabetic education and rec nurse for disease monitoring after discharge. Patient voiced financial concerns, case management to discuss possible available resources with patient. Patient is stable for transfer to the floor. 01/23/2021; patient's blood sugars are reasonable control, as patient has no insurance and cannot afford Lantus transition to Novolin 70/30 which is more affordable, blood sugars moderate control, increase Novolin 70/30 dose to 18 uni ts subcu twice a day, sliding scale coverage Possible discharge in 1 to 2 days if stable, diabetic education, diabetic diet education prior to discharge History Interval history: I have seen and examined the patient at the bedside Patient's chart and medications reviewed Patient's blood sugars in 150s to 200s Patient has no new complaints Hospitalist Physical - Constitutional Vitals: Temp Pulse Resp BP Pulse Ox 97.5 F L 85 18 126/96 98 01/23/21 07:57 01/23/21 07:57 01/23/21 07:57 01/23/21 07:57 01/23/21 07:57 General appearance: Present: no acute distress, well-nourished - EENT Eyes: Present: PERRL, EOM intact - Neck Neck: Present: supple, normal ROM - Respiratory Respiratory effort: normal Respiratory: bilateral: diminished, negative: rales, rhonchi, wheezing - Cardiovascular Rhythm: regular Heart Sounds: Present: S1 & S2 - Extremities Extremities: no ischemia, No edema - Abdominal General gastrointestinal: soft, non-tender, non-distended, normal bowel sounds - Integumentary Integumentary: Present: clear, warm - Psychiatric Psychiatric: appropriate mood/affect, cooperative - Neurologic Neurologic: CNII-XII intact, moves all extremities Results - Labs CBC & Chem 7: 01/22/21 02:30 01/22/21 08:39 Labs: Laboratory Last Values WBC 18.9 K/mm3 (4.5-11.0) H 01/22/21 02:30 RBC 3.86 M/mm3 (3.65-5.03) 01/22/21 02:30 Hgb 12.0 gm/dl (11.8-15.2) 01/22/21 02:30 Hct 34.8 % (35.5-45.6) L 01/22/21 02:30 MCV 90 fl (84-94) 01/22/21 02:30 MCH 31 pg (28-32) 01/22/21 02:30 MCHC 35 % (32-34) H 01/22/21 02:30 RDW 13.5 % (13.2-15.2) 01/22/21 02:30 Plt Count 228 K/mm3 (140-440) 01/22/21 02:30 Lymph % (Auto) 12.0 % (13.4-35.0) L 01/20/21 12:32 [place] % (Auto) 3.9 % (0.0-7.3) 01/20/21 12:32 Eos % (Auto) 0.0 % (0.0-4.3) 01/20/21 12:32 Baso % (Auto) 0.5 % (0.0-1.8) 01/20/21 12:32 Lymph # (Auto) 1.9 K/mm3 (1.2-5.4) 01/20/21 12:32 [place] # (Auto) 0.6 K/mm3 (0.0-0.8) 01/20/21 12:32 Eos # (Auto) 0.0 K/mm3 (0.0-0.4) 01/20/21 12:32 Baso # (Auto) 0.1 K/mm3 (0.0-0.1) 01/20/21 12:32 Seg Neutrophils % 83.6 % (40.0-70.0) H 01/20/21 12:32 Seg Neutrophils # 13.2 K/mm3 (1.8-7.7) H 01/20/21 12:32 D-Dimer 223.16 ng/mlDDU (0-234) 01/20/21 12:35 VBG pH 7.003 (7.320-7.420) L* 01/20/21 15:09 Sodium 133 mmol/L (137-145) L 01/22/21 08:39 Potassium 3.4 mmol/L (3.6-5.0) L 01/22/21 08:39 Chloride 100.0 mmol/L (98-107) 01/22/21 08:39 Carbon Dioxide 20 mmol/L (22-30) L 01/22/21 08:39 Anion Gap 16 mmol/L 01/22/21 08:39 BUN 7 mg/dL (9-20) L 01/22/21 08:39 Creatinine 0.7 mg/dL (0.8-1.3) L 01/22/21 08:39 Estimated GFR > 60 ml/min 01/22/21 08:39 BUN/Creatinine Ratio 10 % 01/22/21 08:39 Glucose 347 mg/dL (75-100) H 01/22/21 08:39 POC Glucose 157 mg/dL (70-105) H 01/23/21 07:56 Hemoglobin A1c 13.0 % (4-6) H 01/22/21 08:39 Lactic Acid 1.10 mmol/L (0.7-2.0) 01/20/21 23:41 Calcium 8.3 mg/dL (8.4-10.2) L 01/22/21 08:39 Phosphorus 2.90 mg/dL (2.5-4.5) D 01/22/21 02:30 Magnesium 2.20 mg/dL (1.7-2.3) 01/22/21 02:30 Ferritin 1371.0 ng/mL (30.0-300.0) H 01/20/21 12:35 Total Bilirubin 0.40 mg/dL (0.1-1.2) 01/20/21 12:32 AST 13 units/L (5-40) 01/20/21 12:32 ALT 30 units/L (7-56) 01/20/21 12:32 Alkaline Phosphatase 164 units/L (35-129) H 01/20/21 12:32 Lactate Dehydrogenase 213 units/L (91-180) H 01/20/21 12:35 C-Reactive Protein 0.30 mg/dL (0.00-1.30) 01/20/21 12:35 Total Protein 8.5 g/dL (6.3-8.2) H 01/20/21 12:32 Albumin 4.9 g/dL (3.9-5) 01/20/21 12:32 Albumin/Globulin Ratio 1.4 % 01/20/21 12:32 Procalcitonin 0.36 ng/mL (<0.15) 01/20/21 12:35 Urine Color Straw (Yellow) 01/20/21 Unknown Urine Turbidity Clear (Clear) 01/20/21 Unknown Urine pH 5.0 (5.0-7.0) 01/20/21 Unknown Ur Specific [place] 1.024 (1.003-1.030) 01/20/21 Unknown Urine Protein 100 mg/dl mg/dL (Negative) 01/20/21 Unknown Urine Glucose (UA) >=500 mg/dL (Negative) 01/20/21 Unknown Urine Ketones 80 mg/dL (Negative) 01/20/21 Unknown Urine Blood Mod (Negative) 01/20/21 Unknown Urine Nitrite Neg (Negative) 01/20/21 Unknown Urine Bilirubin Neg (Negative) 01/20/21 Unknown Urine Urobilinogen < 2.0 mg/dL (<2.0) 01/20/21 Unknown Ur Leukocyte Esterase Neg (Negative) 01/20/21 Unknown Urine WBC (Auto) 1.0 /HPF (0.0-6.0) 01/20/21 Unknown Urine RBC (Auto) 1.0 /HPF (0.0-6.0) 01/20/21 Unknown U Epithel Cells (Auto) 1.0 /HPF (0-13.0) 01/20/21 Unknown Urine Mucus 1+ /HPF 01/20/21 Unknown Urine Opiates Screen Negative 01/20/21 Unknown Urine Methadone Screen Negative 01/20/21 Unknown Ur Barbiturates Screen Negative 01/20/21 Unknown Ur Phencyclidine Scrn Negative 01/20/21 Unknown Ur Amphetamines Screen Negative 01/20/21 Unknown U Benzodiazepines Scrn Negative 01/20/21 Unknown Urine Cocaine Screen Negative 01/20/21 Unknown U Marijuana (THC) Screen Negative 01/20/21 Unknown Drugs of Abuse Note Disclamer 01/20/21 Unknown Coronavirus (PCR) Negative (Negative) 01/21/21 Unknown Microbiology: Microbiology 01/20/21 15:52 Peripheral/Venous Blood Culture - Preliminary NO GROWTH AFTER 48 HOURS 01/20/21 15:52 Peripheral/Venous Blood Culture - Preliminary NO GROWTH AFTER 48 HOURS Antunez/IV: Voiding Method Toilet Active Medications - Current Medications Current Medications: Generic Name Dose Route Start Last Admin Trade Name Freq PRN Reason Stop Dose Admin Acetaminophen 650 mg 01/20/21 15:32 Acetaminophen 325 Mg Tab PO Q6H PRN Pain MILD(1-3)/Fever >100.5/CONSTANTINO Albuterol 2.5 mg 01/20/21 15:32 Albuterol 2.5 Mg/3 Ml Nebu IH Q3HRT PRN Shortness Of Breath Ascorbic Acid 500 mg 01/20/21 22:00 01/22/21 22:57 Ascorbic Acid 500 Mg Tab PO 500 mg BID MT Administration Cholecalciferol 1,000 unit 01/21/21 10:00 01/22/21 09:43 Cholecalciferol (Vit D3) 1000 Unit (25 Mcg) Tab PO 1,000 unit QDAY MT Administration Dextrose 0 ml 01/20/21 22:12 Dextrose 50% In Water (25gm) 50 Ml Syringe IV Q30MIN PRN Hypoglycemia Protocol Enoxaparin Sodium 40 mg 01/21/21 22:00 01/22/21 22:57 Enoxaparin 40 Mg/0.4 Ml Inj SUB-Q 40 mg QDAY@2200 MT Administration Protocol Famotidine 20 mg 01/21/21 22:00 01/22/21 22:57 Famotidine 20 Mg Tab PO 20 mg BID MT Administration Ceftriaxone Sodium 2 gm in 100 mls @ 200 mls/hr 01/20/21 17:00 01/22/21 16:44 Rocephin/Ns 2 Gm/100 Ml IV 01/24/21 17:29 200 mls/hr Q24H MT Administration Protocol Azithromycin 500 mg in 250 mls @ 250 mls/hr 01/20/21 17:00 01/22/21 16:44 Zithromax/Ns IV 01/24/21 17:59 250 mls/hr Q24H MT Administration Protocol Insulin Glargine 20 units 01/22/21 15:00 01/22/21 15:56 Insulin Glargine 100 Units/Ml SUB-Q 20 units Q24HR MT Administration Insulin Human Lispro 0 unit 01/22/21 16:30 01/22/21 22:58 Insulin Lispro 100 Unit/Ml SUB-Q 4 unit ACHS MT Administration Protocol Oxycodone/Acetaminophen 1 tab 01/20/21 15:32 Oxycodone /Acetaminophen 5-325mg Tab PO Q16H PRN Pain, Moderate (4-6) Sodium Chloride 10 ml 01/20/21 22:00 01/22/21 22:58 Sodium Chloride 0.9% 10 Ml Flush Syringe IV 10 ml BID MT Administration Sodium Chloride 10 ml 01/20/21 15:32 Sodium Chloride 0.9% 10 Ml Flush Syringe IV PRN PRN LINE FLUSH Zinc Sulfate 220 mg 01/20/21 22:00 01/22/21 22:58 Zinc Sulfate 220 Mg Cap PO 220 mg BID MT Administration Nutrition/Malnutrition Assess - Dietary Evaluation Nutrition/Malnutrition Findings: Nutrition Notes Start: 01/21/21 12:41 Freq: Status: Active Protocol: Document 01/21/21 12:41 NHALL (Rec: 01/21/21 12:52 NHALL [id number]) Nutrition Notes Need for Assessment generated from: MD Order,publishing editor,MST Initial or Follow up Assessment Current Diagnosis Acute Kidney Injury,Diabetes, Sepsis,Respiratory Failure Other Pertinent Diagnosis DKA, SOB, r/o COVID-19, mental health d/o Current Diet NPO Labs/Tests Phos 1.2 CO2 - 14 Na 133 BG 160 Pertinent Medications Vit C and D3, Zinc sulfate, Insulin gtt, Solumedrol, Na bicarb, D5 1/2NS + 40mEq KCl at 125ml/hr Height 5 ft 11 in Weight 77.111 kg [place] Body Weight (kg) 78.18 BMI 23.7 Weight Status Appropriate Subjective/Other Information RD consulted for diet education and NTR recommendations; pt also screened for malnutrition risk and new onset DM. Pt with hx of medication noncompliance. He was admitted with s/s of hyperglycemia. BG upon admission was 649. Pt on enhanced precaution for COVID- 19; attempted to call pt several times for malnutrition risk assessment, but he is not answering phone. Burn Absent Trauma Absent Minimum of two criteria No #1 Nutrition Diagnosis Altered nutrition-related laboratory values Etiology hx of medication noncompliance , uncontrolled DM As Evidenced by Signs and Symptoms BG upon admission 649 Is patient on ventilator? No Is Patient Ambulatory and/or Out of Bed No [facility] 6175.014 Calculation Used for [facility]ations [facility] Additional Notes Pro needs 1.2-2g/k-154g/ day Fluid needs 1ml/kcal Nutrition Intervention Change Diet Order: Advance diet to Consistent CHO when medically feasible Goal #1 Improved BG control Goal #2 Diet advancement to meet nutrient needs Anticipated Discharge Needs: CHO-controlled diet; take medications as prescribed Follow-Up By: 01/25/21 Additional Comments F/U: diet advancement, diet education needs, MST assessment
[2021-01-23] MEDS: CHOLECALCIFEROL (VIT D3) 1000 UNIT (25 mcg) TAB PO SCH (10:42)
[2021-01-23] MEDS: ASCORBIC ACID 500 MG TAB PO SCH ×2 (10:42→22:41)
[2021-01-23] MEDS: FAMOTIDINE 20 MG TAB PO SCH ×2 (10:42→22:41)
[2021-01-23] MEDS: INSULIN LISPRO 100 UNIT/ML SUB-Q SCH ×4 (10:43→22:00)
[2021-01-23] MEDS: ZINC SULFATE 220 MG CAP PO SCH ×2 (16:28→22:41)
[2021-01-23] MEDS: cefTRIAXone/NS 2 GM/100 ML 2 GM/100 ML BAG IV SCH (16:30)
[2021-01-23] MEDS ORDERED: INSULIN NPH/REGULAR 70/30 INJ SUB-Q SCH ×2 (17:00→18:00)
[2021-01-23] MEDS: AZITHROMYCIN/NS 500 MG/250 ML 500 MG/250 ML BAG IV SCH (17:00)
[2021-01-23] MEDS ORDERED: INSULIN NPH/REGULAR 70/30 INJ SUB-Q ONE (18:55)
[2021-01-23] MEDS: ENOXAPARIN 40 MG/0.4 ML INJ SUB-Q SCH (22:40)
[2021-01-24 05:55] LABS: Hematocrit 36.1 % (35.5-45.6); Hemoglobin 12.1 gm/dl (11.8-15.2); Mean Corpuscular HGB Conc 34 % (32-34); Mean Corpuscular Volume 93 fl (84-94); Platelet Count 237 K/mm3 (140-440); Red Blood Count 3.88 M/mm3 (3.65-5.03); Red Cell Distribution Width 13.6 % (13.2-15.2)
[2021-01-24 06:01] LABS: Blood Urea Nitrogen 6 mg/dL (9-20); Calcium 8.6 mg/dL (8.4-10.2); Hemolysis Index 4
[2021-01-24 06:05] LABS: BUN/Creatinine Ratio 9
[2021-01-24] MEDS ORDERED: INSULIN NPH/REGULAR 70/30 INJ SUB-Q SCH ×2 (08:00→17:00)
[2021-01-24 09:52] LABS: Total Cells Counted 100
[2021-01-24 09:53] LABS: Platelet Estimate Consistent w Auto; RBC Morphology Normal
[2021-01-24] MEDS: INSULIN GLARGINE 100 UNITS/ML SUB-Q SCH (10:04)
[2021-01-24] MEDS: INSULIN LISPRO 100 UNIT/ML SUB-Q SCH ×4 (10:07→18:02)
[2021-01-24] MEDS ORDERED: POTASSIUM CHLORIDE ER 20 MEQ TAB PO ONE (12:09)
[2021-01-24] MEDS: ASCORBIC ACID 500 MG TAB PO SCH ×2 (13:17→21:02)
[2021-01-24] MEDS: CHOLECALCIFEROL (VIT D3) 1000 UNIT (25 mcg) TAB PO SCH (13:17)
[2021-01-24] MEDS: FAMOTIDINE 20 MG TAB PO SCH ×2 (13:17→21:03)
[2021-01-24] MEDS: ZINC SULFATE 220 MG CAP PO SCH ×2 (13:18→21:02)
--- NOTE | 2021-01-24 17:01 | Progress Note ---
Assessment and Plan Assessment and plan: This is a 62-[id number]-pyo AA Male with a history of HTN, noncompliant with meds, depression, and nicotine dependence who came complaining of not feeling good. Patient states that he has experienced shortness of breath, fatigue, weakness, body aches, nausea, polydipsia, polyuria over the past 1 week with persistent and worsening symptoms over the same timeframe. In the ED patient was tachycardic, tachypneic, hypoxic with SPO2 at 87% on RA. Patient was found to be in DKA and metabolic acidosis, DKA protocol was initiated. Patient was then transferred to ICU for further management. Patient was stabilized on DKA pathway per protocol, transition to long-acting insulin transferred to medical floor, patient's blood sugars fluctuate adjusted insulin dose as needed, smoking cessation counseling done Assessment and plan: --COVID-19 negative --Hypokalemia; Potassium 3.2, advised 40 mEq of p.o. KCl Closely monitor electrolytes Magnesium and phosphate levels normal range --DKA (diabetic ketoacidosis) Patient was on DKA pathway Stabilized in ICU transition to long-acting insulin Patient is currently on 70/30 Novolin Moderate control, A1c 13.0 Diabetic education, nutrition education Possible discharge in 1 to 2 days if stable --New onset diabetes mellitus; A1c 13.0 Moderate control, increase Novolin 70/30 to 18 units twice a day Patient's blood sugars in the morning was >300, patient received morning dose of 18 units at 1:20 noon Increase Novolin 70/30 insulin to 20 units twice a day starting from tonight Sliding scale coverage, ADA diet Diabetic education, nutrition education prior to discharge --Hyponatremia-; Pseudohyponatremia, secondary to hyperglycemia Resolved, sodium today 138 --Hypophosphatemia; Electrolytes repleted, resolved Closely monitor electrolytes --Acute metabolic acidosis; present on admission, Due to DKA Resolved --Lactic acidosis; Resolved, SIRS, Cultures negative to date Empiric antibiotics, last dose tomorrow --SIRS ; leukocytosis, tachycardia On empiric antibiotics Rocephin and Zithromax Cultures negative to date, complete 5 days Patient has lactic acidosis, resolved --Ongoing tobacco use; Smoking cessation counseling done Risks and consequences of ongoing tobacco use explained in detail Spent 17 minutes, advised nicotine patch as needed Patient verbalized understanding --DVT prophylaxis; Subcu Lovenox --DC planning per case management We will closely monitor the patient and adjust management as needed Plan of care reviewed with the patient and his nurse Hospital Course to Date: 01/21/21- Patient remains on DKA protocol, repeat labs pending to f/u on GAP. Electrolytes replaced, renal function improved. Will continue to monitor electrolytes and renal function, serial labs ordered 01/22/21- Patient was Novolin 70/30 SubQ insulin overnight, remains hyperglycemic SSI and basal insulin adjusted. Hypokalemia was repleted, will recheck in the am. Orders placed for diabetic education and rec nurse for disease monitoring after discharge. Patient voiced financial concerns, case management to discuss possible available resources with patient. Patient is stable for transfer to the floor. 01/23/2021; patient's blood sugars are reasonable control, as patient has no insurance and cannot afford Lantus transition to Novolin 70/30 which is more affordable, blood sugars moderate control, increase Novolin 70/30 dose to 18 units subcu twice a day, sliding scale coverage Possible discharge in 1 to 2 days if stable, diabetic education, diabetic diet education prior to discharge 01/24/2021; blood sugar >300 this morning, received morning insulin very late Increased Novolin 70/30 to 20 units twice a day, diabetic education nutrition education prior to discharge Possible discharge home tomorrow if stable and sugars are reasonably controlled History Interval history: I have seen and examined the patient at the bedside Patient's chart and medications reviewed Patient feels better no new complaints Blood sugars are still labile Hospitalist Physical - Constitutional Vitals: Temp Pulse Resp BP Pulse Ox 97.9 F 103 H 18 122/77 94 01/24/21 11:02 01/24/21 11:02 01/24/21 11:02 01/24/21 11:02 01/24/21 11:02 General appearance: Present: no acute distress, well-nourished - EENT Eyes: Present: PERRL, EOM intact - Neck Neck: Present: supple, normal ROM - Respiratory Respiratory effort: normal Respiratory: bilateral: diminished, negative: rales, rhonchi, wheezing - Cardiovascular Rhythm: regular Heart Sounds: Present: S1 & S2 - Extremities Extremities: no ischemia, No edema - Abdominal General gastrointestinal: soft, non-tender, non-distended, normal bowel sounds - Integumentary Integumentary: Present: clear, warm - Psychiatric Psychiatric: appropriate mood/affect, cooperative - Neurologic Neurologic: CNII-XII intact, moves all extremities Results - Labs CBC & Chem 7: 01/24/21 05:15 01/24/21 05:15 Labs: Laboratory Last Values WBC 8.0 K/mm3 (4.5-11.0) 01/24/21 05:15 RBC 3.88 M/mm3 (3.65-5.03) 01/24/21 05:15 Hgb 12.1 gm/dl (11.8-15.2) 01/24/21 05:15 Hct 36.1 % (35.5-45.6) 01/24/21 05:15 MCV 93 fl (84-94) 01/24/21 05:15 MCH 31 pg (28-32) 01/24/21 05:15 MCHC 34 % (32-34) 01/24/21 05:15 RDW 13.6 % (13.2-15.2) 01/24/21 05:15 Plt Count 237 K/mm3 (140-440) 01/24/21 05:15 Lymph % (Auto) Projection Camera Operator 01/24/21 05:15 Woodson % (Auto) 3.9 % (0.0-7.3) 01/20/21 12:32 Eos % (Auto) 0.0 % (0.0-4.3) 01/20/21 12:32 Baso % (Auto) 0.5 % (0.0-1.8) 01/20/21 12:32 Lymph # (Auto) Projection Camera Operator 01/24/21 05:15 [place]son # (Auto) 0.6 K/mm3 (0.0-0.8) 01/20/21 12:32 Eos # (Auto) 0.0 K/mm3 (0.0-0.4) 01/20/21 12:32 Baso # (Auto) 0.1 K/mm3 (0.0-0.1) 01/20/21 12:32 Add Manual Diff Complete 01/24/21 05:15 Total Counted 100 01/24/21 05:15 Seg Neutrophils % Projection Camera Operator 01/24/21 05:15 Seg Neuts % (Manual) 44.0 % (40.0-70.0) 01/24/21 05:15 Lymphocytes % (Manual) 46.0 % (13.4-35.0) H 01/24/21 05:15 Reactive Lymphs % (Man) 1.0 % 01/24/21 05:15 Monocytes % (Manual) 9.0 % (0.0-7.3) H 01/24/21 05:15 Nucleated RBC % Not Reportable 01/24/21 05:15 Seg Neutrophils # 13.2 K/mm3 (1.8-7.7) H 01/20/21 12:32 Seg Neutrophils # Man 3.5 K/mm3 (1.8-7.7) 01/24/21 05:15 Band Neutrophils # 0.0 K/mm3 01/24/21 05:15 Lymphocytes # (Manual) 3.7 K/mm3 (1.2-5.4) 01/24/21 05:15 Abs React Lymphs (Man) 0.1 K/mm3 01/24/21 05:15 Monocytes # (Manual) 0.7 K/mm3 (0.0-0.8) 01/24/21 05:15 Eosinophils # (Manual) 0.0 K/mm3 (0.0-0.4) 01/24/21 05:15 Basophils # (Manual) 0.0 K/mm3 (0.0-0.1) 01/24/21 05:15 Metamyelocytes # 0.0 K/mm3 01/24/21 05:15 Myelocytes # 0.0 K/mm3 01/24/21 05:15 Promyelocytes # 0.0 K/mm3 01/24/21 05:15 Blast Cells # 0.0 K/mm3 01/24/21 05:15 WBC Morphology Not Reportable 01/24/21 05:15 Hypersegmented Neuts Not Reportable 01/24/21 05:15 Hyposegmented Neuts Not Reportable 01/24/21 05:15 Hypogranular Neuts Not Reportable 01/24/21 05:15 Smudge Cells Not Reportable 01/24/21 05:15 Toxic Granulation Not Reportable 01/24/21 05:15 Toxic Vacuolation Not Reportable 01/24/21 05:15 Dohle Bodies Not Reportable 01/24/21 05:15 Pelger-Huet Anomaly Not Reportable 01/24/21 05:15 Harinder Rods Not Reportable 01/24/21 05:15 Platelet Estimate Consistent w auto 01/24/21 05:15 Clumped Platelets Not Reportable 01/24/21 05:15 Plt Clumps, EDTA Not Reportable 01/24/21 05:15 Large Platelets Not Reportable 01/24/21 05:15 Giant Platelets Not Reportable 01/24/21 05:15 Platelet Satelliting Not Reportable 01/24/21 05:15 Plt Morphology Comment Not Reportable 01/24/21 05:15 RBC Morphology Normal 01/24/21 05:15 Dimorphic RBCs Not Reportable 01/24/21 05:15 Polychromasia Not Reportable 01/24/21 05:15 Hypochromasia Not Reportable 01/24/21 05:15 Poikilocytosis Not Reportable 01/24/21 05:15 Anisocytosis Not Reportable 01/24/21 05:15 Microcytosis Not Reportable 01/24/21 05:15 Macrocytosis Not Reportable 01/24/21 05:15 Spherocytes Not Reportable 01/24/21 05:15 Pappenheimer Bodies Not Reportable 01/24/21 05:15 Sickle Cells Not Reportable 01/24/21 05:15 Target Cells Not Reportable 01/24/21 05:15 Tear Drop Cells Not Reportable 01/24/21 05:15 Ovalocytes Not Reportable 01/24/21 05:15 Helmet Cells Not Reportable 01/24/21 05:15 Vaughan-[place] Bodies Not Reportable 01/24/21 05:15 Reseda Rings Not Reportable 01/24/21 05:15 [place] Cells Not Reportable 01/24/21 05:15 Bite Cells Not Reportable 01/24/21 05:15 Crenated Cell Not Reportable 01/24/21 05:15 Elliptocytes Not Reportable 01/24/21 05:15 Acanthocytes (Spur) Not Reportable 01/24/21 05:15 Rouleaux Not Reportable 01/24/21 05:15 Hemoglobin C Crystals Not Reportable 01/24/21 05:15 Schistocytes Not Reportable 01/24/21 05:15 Malaria parasites Not Reportable 01/24/21 05:15 Cody Bodies Not Reportable 01/24/21 05:15 Hem Pathologist Commnt No 01/24/21 05:15 D-Dimer 223.16 ng/mlDDU (0-234) 01/20/21 12:35 VBG pH 7.003 (7.320-7.420) L* 01/20/21 15:09 Sodium 138 mmol/L (137-145) 01/24/21 05:15 Potassium 3.2 mmol/L (3.6-5.0) L 01/24/21 05:15 Chloride 101.8 mmol/L (98-107) 01/24/21 05:15 Carbon Dioxide 26 mmol/L (22-30) 01/24/21 05:15 Anion Gap 13 mmol/L 01/24/21 05:15 BUN 6 mg/dL (9-20) L 01/24/21 05:15 Creatinine 0.7 mg/dL (0.8-1.3) L 01/24/21 05:15 Estimated GFR > 60 ml/min 01/24/21 05:15 BUN/Creatinine Ratio 9 % 01/24/21 05:15 Glucose 153 mg/dL (75-100) H 01/24/21 05:15 POC Glucose 152 mg/dL (70-105) H 01/24/21 16:31 Hemoglobin A1c 13.0 % (4-6) H 01/22/21 08:39 Lactic Acid 1.10 mmol/L (0.7-2.0) 01/20/21 23:41 Calcium 8.6 mg/dL (8.4-10.2) 01/24/21 05:15 Phosphorus 3.90 mg/dL (2.5-4.5) 01/24/21 05:15 Magnesium 1.80 mg/dL (1.7-2.3) 01/24/21 05:15 Ferritin 1371.0 ng/mL (30.0-300.0) H 01/20/21 12:35 Total Bilirubin 0.40 mg/dL (0.1-1.2) 01/20/21 12:32 AST 13 units/L (5-40) 01/20/21 12:32 ALT 30 units/L (7-56) 01/20/21 12:32 Alkaline Phosphatase 164 units/L (35-129) H 01/20/21 12:32 Lactate Dehydrogenase 213 units/L (91-180) H 01/20/21 12:35 C-Reactive Protein 0.30 mg/dL (0.00-1.30) 01/20/21 12:35 Total Protein 8.5 g/dL (6.3-8.2) H 01/20/21 12:32 Albumin 4.9 g/dL (3.9-5) 01/20/21 12:32 Albumin/Globulin Ratio 1.4 % 01/20/21 12:32 Procalcitonin 0.36 ng/mL (<0.15) 01/20/21 12:35 Urine Color Straw (Yellow) 01/20/21 Unknown Urine Turbidity Clear (Clear) 01/20/21 Unknown Urine pH 5.0 (5.0-7.0) 01/20/21 Unknown Ur Specific [place] 1.024 (1.003-1.030) 01/20/21 Unknown Urine Protein 100 mg/dl mg/dL (Negative) 01/20/21 Unknown Urine Glucose (UA) >=500 mg/dL (Negative) 01/20/21 Unknown Urine Ketones 80 mg/dL (Negative) 01/20/21 Unknown Urine Blood Mod (Negative) 01/20/21 Unknown Urine Nitrite Neg (Negative) 01/20/21 Unknown Urine Bilirubin Neg (Negative) 01/20/21 Unknown Urine Urobilinogen < 2.0 mg/dL (<2.0) 01/20/21 Unknown Ur Leukocyte Esterase Neg (Negative) 01/20/21 Unknown Urine WBC (Auto) 1.0 /HPF (0.0-6.0) 01/20/21 Unknown Urine RBC (Auto) 1.0 /HPF (0.0-6.0) 01/20/21 Unknown U Epithel Cells (Auto) 1.0 /HPF (0-13.0) 01/20/21 Unknown Urine Mucus 1+ /HPF 01/20/21 Unknown Urine Opiates Screen Negative 01/20/21 Unknown Urine Methadone Screen Negative 01/20/21 Unknown Ur Barbiturates Screen Negative 01/20/21 Unknown Ur Phencyclidine Scrn Negative 01/20/21 Unknown Ur Amphetamines Screen Negative 01/20/21 Unknown U Benzodiazepines Scrn Negative 01/20/21 Unknown Urine Cocaine Screen Negative 01/20/21 Unknown U Marijuana (THC) Screen Negative 01/20/21 Unknown Drugs of Abuse Note Disclamer 01/20/21 Unknown Coronavirus (PCR) Negative (Negative) 01/21/21 Unknown Microbiology: Microbiology 01/20/21 15:52 Peripheral/Venous Blood Culture - Preliminary NO GROWTH AFTER 72 HOURS 01/20/21 15:52 Peripheral/Venous Blood Culture - Preliminary NO GROWTH AFTER 72 HOURS Antunez/IV: Voiding Method Toilet Active Medications - Current Medications Current Medications: Generic Name Dose Route Start Last Admin Trade Name Freq PRN Reason Stop Dose Admin Acetaminophen 650 mg 01/20/21 15:32 Acetaminophen 325 Mg Tab PO Q6H PRN Pain MILD(1-3)/Fever >100.5/CONSTANTINO Albuterol 2.5 mg 01/20/21 15:32 Albuterol 2.5 Mg/3 Ml Nebu IH Q3HRT PRN Shortness Of Breath Ascorbic Acid 500 mg 01/20/21 22:00 01/24/21 13:17 Ascorbic Acid 500 Mg Tab PO 500 mg BID MT Administration Cholecalciferol 1,000 unit 01/21/21 10:00 01/24/21 13:17 Cholecalciferol (Vit D3) 1000 Unit (25 Mcg) Tab PO 1,000 unit QDAY MT Administration Dextrose 0 ml 01/20/21 22:12 Dextrose 50% In Water (25gm) 50 Ml Syringe IV Q30MIN PRN Hypoglycemia Protocol Enoxaparin Sodium 40 mg 01/21/21 22:00 01/23/21 22:40 Enoxaparin 40 Mg/0.4 Ml Inj SUB-Q 40 mg QDAY@2200 MT Administration Protocol Famotidine 20 mg 01/21/21 22:00 01/24/21 13:17 Famotidine 20 Mg Tab PO 20 mg BID MT Administration Ceftriaxone Sodium 2 gm in 100 mls @ 200 mls/hr 01/20/21 17:00 01/23/21 16:30 Rocephin/Ns 2 Gm/100 Ml IV 01/24/21 17:29 200 mls/hr Q24H MT Administration Protocol Azithromycin 500 mg in 250 mls @ 250 mls/hr 01/20/21 17:00 01/23/21 17:00 Zithromax/Ns IV 01/24/21 17:59 250 mls/hr Q24H MT Administration Protocol Insulin Human Isoph/Insulin Regular 20 unit 01/24/21 18:00 Insulin Nph/Regular 70/30 Inj SUB-Q BIDDIAB [facility] Insulin Human Lispro 0 unit 01/22/21 16:30 01/24/21 13:18 Insulin Lispro 100 Unit/Ml SUB-Q 10 unit ACHS MT Administration Protocol Oxycodone/Acetaminophen 1 tab 01/20/21 15:32 Oxycodone /Acetaminophen 5-325mg Tab PO Q16H PRN Pain, Moderate (4-6) Sodium Chloride 10 ml 01/20/21 22:00 01/24/21 13:17 Sodium Chloride 0.9% 10 Ml Flush Syringe IV 10 ml BID MT Administration Sodium Chloride 10 ml 01/20/21 15:32 Sodium Chloride 0.9% 10 Ml Flush Syringe IV PRN PRN LINE FLUSH Zinc Sulfate 220 mg 01/20/21 22:00 01/24/21 13:18 Zinc Sulfate 220 Mg Cap PO 220 mg BID MT Administration Nutrition/Malnutrition Assess - Dietary Evaluation Nutrition/Malnutrition Findings: Nutrition Notes Start: 01/21/21 12:41 Freq: Status: Active Protocol: Document 01/21/21 12:41 [facility] (Rec: 01/21/21 12:52 NHALL [id number]) Nutrition Notes Need for Assessment generated from: MD Order,electromechanisms design drafter,MST Initial or Follow up Assessment Current Diagnosis Acute Kidney Injury,Diabetes, Sepsis,Respiratory Failure Other Pertinent Diagnosis DKA, SOB, r/o COVID-19, mental health d/o Current Diet NPO Labs/Tests Phos 1.2 CO2 - 14 Na 133 BG 160 Pertinent Medications Vit C and D3, Zinc sulfate, Insulin gtt, Solumedrol, Na bicarb, D5 1/2NS + 40mEq KCl at 125ml/hr Height 5 ft 11 in Weight 77.111 kg [place] Body Weight (kg) 78.18 BMI 23.7 Weight Status Appropriate Subjective/Other Information RD consulted for diet education and NTR recommendations; pt also screened for malnutrition risk and new onset DM. Pt with hx of medication noncompliance. He was admitted with s/s of hyperglycemia. BG upon admission was 649. Pt on enhanced precaution for COVID- 19; attempted to call pt several times for malnutrition risk assessment, but he is not answering phone. Burn Absent Trauma Absent Minimum of two criteria No #1 Nutrition Diagnosis Altered nutrition-related laboratory values Etiology hx of medication noncompliance , uncontrolled DM As Evidenced by Signs and Symptoms BG upon admission 649 Is patient on ventilator? No Is Patient Ambulatory and/or Out of Bed No REE-([facility]-confined to bed) 3578.558 Calculation Used for Recommendations [facility] Additional Notes Pro needs 1.2-2g/k-154g/ day Fluid needs 1ml/kcal Nutrition Intervention Change Diet Order: Advance diet to Consistent CHO when medically feasible Goal #1 Improved BG control Goal #2 Diet advancement to meet nutrient needs Anticipated Discharge Needs: CHO-controlled diet; take medications as prescribed Follow-Up By: 01/25/21 Additional Comments F/U: diet advancement, diet education needs, MST assessment
[2021-01-24] MEDS: AZITHROMYCIN/NS 500 MG/250 ML 500 MG/250 ML BAG IV SCH (18:01)
[2021-01-24] MEDS: cefTRIAXone/NS 2 GM/100 ML 2 GM/100 ML BAG IV SCH (18:01)
[2021-01-24] MEDS: INSULIN NPH/REGULAR 70/30 INJ SUB-Q SCH (20:58)
[2021-01-24] MEDS: ENOXAPARIN 40 MG/0.4 ML INJ SUB-Q SCH (21:03)
[2021-01-25] MEDS: INSULIN LISPRO 100 UNIT/ML SUB-Q SCH ×2 (03:06→11:03)
[2021-01-25 04:25] VITALS: BP 115/80
--- NOTE | 2021-01-25 09:51 | Discharge Summary ---
Providers - Providers Date of Admission: 01/20/21 15:32 Date of discharge: 01/25/21 Attending physician: MAIN DON 01/20/21 22:12 Consult to Dietitian/Nutrition [CONS] Routine Physician Instructions: Reason For Exam: DKA Reason for Consult: Nutrition Recommendations Reason for Consult: Diet education 01/21/21 15:36 Consult to Physician [CONS] Routine Comment: Consulting Provider: RAYNA MACIAS Physician Instructions: Reason For Exam: DKA Primary care physician: POLICY OFFICER Hospitalization Condition: Fair Hospital course: This is a 58-[id number] AA Male with a history of HTN, noncompliant with meds, depression, and nicotine dependence who came complaining of not feeling good. Patient states that he has experienced shortness of breath, fatigue, weakness, body aches, nausea, polydipsia, polyuria over the past 1 week with persistent and worsening symptoms over the same timeframe. In the ED patient was ta chycardic, tachypneic, hypoxic with SPO2 at 87% on RA. Patient was found to be in DKA and metabolic acidosis, DKA protocol was initiated. Patient was then transferred to ICU for further management. Patient was stabilized on DKA pathway per protocol, transition to long-acting insulin transferred to medical floor, patient's blood sugars fluctuate adjusted insulin dose as needed, smoking cessation counseling done Assessment and plan: --COVID-19 negative --Hypokalemia; Potassium 3.2, advised 40 mEq of p.o. KCl Closely monitor electrolytes Magnesium and phosphate levels normal range --DKA (diabetic ketoacidosis) Patient was on DKA pathway Stabilized in ICU transition to long-acting insulin Patient is currently on 70/30 Novolin Moderate control, A1c 13.0 Diabetic education, nutrition education Possible discharge in 1 to 2 days if stable --New onset diabetes mellitus; A1c 13.0 Moderate control, increase Novolin 70/30 to 18 units twice a day Patient's blood sugars in the morning was >300, patient received morning dose of 18 units at 1:20 noon Increase Novolin 70/30 insulin to 20 units twice a day starting from tonight Sliding scale coverage, ADA diet Diabetic education, nutrition education prior to discharge --Hyponatremia-; Pseudohyponatremia, secondary to hyperglycemia Resolved, sodium today 138 --Hypophosphatemia; Electrolytes repleted, resolved Closely monitor electrolytes --Acute metabolic acidosis; present on admission, Due to DKA Resolved --Lactic acidosis; Resolved, SIRS, Cultures negative to date Empiric antibiotics, last dose tomorrow --SIRS ; leukocytosis, tachycardia On empiric antibiotics Rocephin and Zithromax Cultures negative to date, complete 5 days Patient has lactic acidosis, resolved --Ongoing tobacco use; Smoking cessation counseling done Risks and consequences of ongoing tobacco use explained in detail Spent 17 minutes, advised nicotine patch as needed Patient verbalized understanding Disposition: HOME / SELF CARE / HOMELESS Final Discharge Diagnosis (Prints w/discharge instructions): Diabetic ketoacidosis/resolved. New onset type 2 diabetes mellitus. Hypokalemia/corrected. Hyponatremia/resolved. Hypophosphatemia resolved. Metabolic acidosis resolved. SIRS/bronchitis treated. Ongoing tobacco use/advised to quit Time spent for discharge: 35 min Core Measure Documentation - Palliative Care Palliative Care/ Comfort Measures: Not Applicable - Core Measures Any of the following diagnoses?: none Exam - Constitutional Vitals: Temp Pulse Resp BP Pulse Ox 97.8 F 77 14 115/80 98 01/25/21 03:55 01/25/21 03:55 01/25/21 03:55 01/25/21 03:55 01/25/21 03:55 Plan Activity: no restrictions Diet: diabetic Additional Instructions: Advised to comply with medications, diet and follow-up visits. Advised to see private internet manager in 1 to 2 weeks. If you have worsening symptoms contact MD or go to the nearest emergency room Follow up with: PRIMARY CARE,MD [Primary Care Provider] - 7 Days Prescriptions: Lispro Insulin [HumaLOG] 3 unit SUB-Q ACHS #1 vial Insulin NPH/Regular [NovoLIN 70/30] 20 unit SUB-Q BIDDIAB #2 vial Other Discharge Orders: Glucometer (Amb) Location: None Selected Glucometer supplies[Amb] Location: None Selected
[2021-01-25] MEDS: ASCORBIC ACID 500 MG TAB PO SCH (11:04)
[2021-01-25] MEDS: INSULIN NPH/REGULAR 70/30 INJ SUB-Q SCH (11:04)
[2021-01-25] MEDS: FAMOTIDINE 20 MG TAB PO SCH (11:04)
[2021-01-25] MEDS: CHOLECALCIFEROL (VIT D3) 1000 UNIT (25 mcg) TAB PO SCH (11:05)
[2021-01-25] MEDS: ZINC SULFATE 220 MG CAP PO SCH (11:05)
--- NOTE | 2021-01-25 13:42 | Progress Note ---
Assessment and Plan - Patient Problems (1) Respiratory failure Current Visit: No Status: Acute Qualifiers: Chronicity: acute Respiratory failure complication: hypoxia Qualified Code(s): J96.01 - Acute respiratory failure with hypoxia (2) Sepsis Current Visit: No Status: Acute (3) Suspected 2019 novel coronavirus infection Current Visit: No Status: Acute (4) DKA (diabetic ketoacidosis) Current Visit: Yes Status: Acute Qualifiers: Diabetes mellitus complication detail: without coma Subjective Date of service: 01/25/21 Objective Vital Signs - 12hr 01/25/21 01/25/21 02:58 03:55 Temperature 97.8 F Pulse Rate 77 Respiratory 17 14 Rate Blood Pressure 115/80 O2 Sat by Pulse 99 98 Oximetry CBC and BMP: 01/24/21 05:15 01/25/21 10:32 ABG, PT/INR, D-dimer: PT/INR, D-dimer D-Dimer 223.16 ng/mlDDU (0-234) 01/20/21 12:35 Abnormal lab findings: Abnormal Labs 01/20/21 01/20/21 01/20/21 12:32 12:32 12:35 WBC 15.8 H RBC 5.34 H Hgb 16.8 H Hct 53.0 H MCV 99 H MCHC RDW Lymph % (Auto) 12.0 L Seg Neutrophils % 83.6 H Lymphocytes % (Manual) Monocytes % (Manual) Seg Neutrophils # 13.2 H VBG pH Sodium 127 L Potassium Chloride 85.9 L Carbon Dioxide 4 L* BUN Creatinine 1.5 H Glucose 649 H* 637 H* POC Glucose Hemoglobin A1c Lactic Acid Calcium Phosphorus Ferritin Alkaline Phosphatase 164 H Lactate Dehydrogenase 213 H Total Protein 8.5 H 01/20/21 01/20/21 01/20/21 12:35 15:09 15:09 WBC RBC Hgb Hct MCV MCHC RDW Lymph % (Auto) Seg Neutrophils % Lymphocytes % (Manual) Monocytes % (Manual) Seg Neutrophils # VBG pH 7.003 L* Sodium Potassium Chloride Carbon Dioxide BUN Creatinine Glucose POC Glucose Hemoglobin A1c Lactic Acid Calcium Phosphorus 5.10 H Ferritin 1371.0 H Alkaline Phosphatase Lactate Dehydrogenase Total Protein 01/20/21 01/20/21 01/20/21 15:52 15:52 17:19 WBC RBC Hgb Hct MCV MCHC RDW Lymph % (Auto) Seg Neutrophils % Lymphocytes % (Manual) Monocytes % (Manual) Seg Neutrophils # VBG pH Sodium 126 L Potassium Chloride 91.1 L Carbon Dioxide 3 L* BUN Creatinine 1.4 H Glucose 584 H* POC Glucose 448 H Hemoglobin A1c Lactic Acid 3.50 H* Calcium Phosphorus Ferritin Alkaline Phosphatase Lactate Dehydrogenase Total Protein 01/20/21 01/20/21 01/20/21 19:49 22:01 23:07 WBC RBC Hgb Hct MCV MCHC RDW Lymph % (Auto) Seg Neutrophils % Lymphocytes % (Manual) Monocytes % (Manual) Seg Neutrophils # VBG pH Sodium 132 L Potassium Chloride Carbon Dioxide 6 L* BUN Creatinine Glucose 245 H POC Glucose 162 H 153 H Hemoglobin A1c Lactic Acid Calcium 8.1 L Phosphorus Ferritin Alkaline Phosphatase Lactate Dehydrogenase Total Protein 01/20/21 01/21/21 01/21/21 23:41 00:05 00:53 WBC RBC Hgb Hct MCV MCHC RDW Lymph % (Auto) Seg Neutrophils % Lymphocytes % (Manual) Monocytes % (Manual) Seg Neutrophils # VBG pH Sodium 129 L Potassium Chloride Carbon Dioxide 9 L* BUN Creatinine Glucose 171 H POC Glucose 155 H 195 H Hemoglobin A1c Lactic Acid Calcium Phosphorus Ferritin Alkaline Phosphatase Lactate Dehydrogenase Total Protein 01/21/21 01/21/21 01/21/21 02:02 03:05 04:08 WBC RBC Hgb Hct MCV MCHC RDW Lymph % (Auto) Seg Neutrophils % Lymphocytes % (Manual) Monocytes % (Manual) Seg Neutrophils # VBG pH Sodium Potassium Chloride Carbon Dioxide BUN Creatinine Glucose POC Glucose 238 H 245 H 186 H Hemoglobin A1c Lactic Acid Calcium Phosphorus Ferritin Alkaline Phosphatase Lactate Dehydrogenase Total Protein 01/21/21 01/21/21 01/21/21 04:43 04:58 06:00 WBC RBC Hgb Hct MCV MCHC RDW Lymph % (Auto) Seg Neutrophils % Lymphocytes % (Manual) Monocytes % (Manual) Seg Neutrophils # VBG pH Sodium 132 L Potassium Chloride Carbon Dioxide 13 L BUN Creatinine Glucose 179 H POC Glucose 180 H 180 H Hemoglobin A1c Lactic Acid Calcium Phosphorus Ferritin Alkaline Phosphatase Lactate Dehydrogenase Total Protein 01/21/21 01/21/21 01/21/21 06:54 08:00 09:13 WBC RBC Hgb Hct MCV MCHC RDW Lymph % (Auto) Seg Neutrophils % Lymphocytes % (Manual) Monocytes % (Manual) Seg Neutrophils # VBG pH Sodium 133 L Potassium Chloride Carbon Dioxide 14 L BUN Creatinine Glucose 160 H POC Glucose 138 H 174 H Hemoglobin A1c Lactic Acid Calcium Phosphorus 1.20 L D Ferritin Alkaline Phosphatase Lactate Dehydrogenase Total Protein 01/21/21 01/21/21 01/21/21 10:16 12:58 14:17 WBC 19.9 H RBC Hgb Hct MCV MCHC RDW 13.1 L Lymph % (Auto) Seg Neutrophils % Lymphocytes % (Manual) Monocytes % (Manual) Seg Neutrophils # VBG pH Sodium Potassium Chloride Carbon Dioxide BUN Creatinine Glucose POC Glucose 187 H 234 H Hemoglobin A1c Lactic Acid Calcium Phosphorus Ferritin Alkaline Phosphatase Lactate Dehydrogenase Total Protein 01/21/21 01/21/21 01/21/21 14:44 15:06 16:01 WBC RBC Hgb Hct MCV MCHC RDW Lymph % (Auto) Seg Neutrophils % Lymphocytes % (Manual) Monocytes % (Manual) Seg Neutrophils # VBG pH Sodium 136 L Potassium 3.5 L Chloride Carbon Dioxide 12 L BUN Creatinine Glucose 196 H POC Glucose 205 H 187 H Hemoglobin A1c Lactic Acid Calcium 8.3 L Phosphorus Ferritin Alkaline Phosphatase Lactate Dehydrogenase Total Protein 01/21/21 01/21/21 01/21/21 17:16 18:04 18:37 WBC RBC Hgb Hct MCV MCHC RDW Lymph % (Auto) Seg Neutrophils % Lymphocytes % (Manual) Monocytes % (Manual) Seg Neutrophils # VBG pH Sodium Potassium 3.5 L Chloride Carbon Dioxide 16 L BUN 8 L Creatinine Glucose 124 H POC Glucose 146 H 127 H Hemoglobin A1c Lactic Acid Calcium Phosphorus 1.10 L Ferritin Alkaline Phosphatase Lactate Dehydrogenase Total Protein 01/21/21 01/21/21 01/21/21 19:52 22:16 23:44 WBC RBC Hgb Hct MCV MCHC RDW Lymph % (Auto) Seg Neutrophils % Lymphocytes % (Manual) Monocytes % (Manual) Seg Neutrophils # VBG pH Sodium Potassium Chloride Carbon Dioxide BUN Creatinine Glucose POC Glucose 126 H 184 H 214 H Hemoglobin A1c Lactic Acid Calcium Phosphorus Ferritin Alkaline Phosphatase Lactate Dehydrogenase Total Protein 01/22/21 01/22/21 01/22/21 02:26 02:30 02:30 WBC 18.9 H RBC Hgb Hct 34.8 L MCV MCHC 35 H RDW Lymph % (Auto) Seg Neutrophils % Lymphocytes % (Manual) Monocytes % (Manual) Seg Neutrophils # VBG pH Sodium Potassium 3.4 L Chloride Carbon Dioxide 16 L BUN 7 L Creatinine 0.7 L Glucose 173 H POC Glucose 157 H Hemoglobin A1c Lactic Acid Calcium 7.8 L Phosphorus Ferritin Alkaline Phosphatase Lactate Dehydrogenase Total Protein 01/22/21 01/22/21 01/22/21 04:13 05:51 07:54 WBC RBC Hgb Hct MCV MCHC RDW Lymph % (Auto) Seg Neutrophils % Lymphocytes % (Manual) Monocytes % (Manual) Seg Neutrophils # VBG pH Sodium Potassium Chloride Carbon Dioxide BUN Creatinine Glucose POC Glucose 156 H 171 H 166 H Hemoglobin A1c Lactic Acid Calcium Phosphorus Ferritin Alkaline Phosphatase Lactate Dehydrogenase Total Protein 01/22/21 01/22/21 01/22/21 08:39 08:39 11:37 WBC RBC Hgb Hct MCV MCHC RDW Lymph % (Auto) Seg Neutrophils % Lymphocytes % (Manual) Monocytes % (Manual) Seg Neutrophils # VBG pH Sodium 133 L Potassium 3.4 L Chloride Carbon Dioxide 20 L BUN 7 L Creatinine 0.7 L Glucose 347 H POC Glucose 367 H Hemoglobin A1c 13.0 H Lactic Acid Calcium 8.3 L Phosphorus Ferritin Alkaline Phosphatase Lactate Dehydrogenase Total Protein 01/22/21 01/22/21 01/23/21 15:47 21:46 07:56 WBC RBC Hgb Hct MCV MCHC RDW Lymph % (Auto) Seg Neutrophils % Lymphocytes % (Manual) Monocytes % (Manual) Seg Neutrophils # VBG pH Sodium Potassium Chloride Carbon Dioxide BUN Creatinine Glucose POC Glucose 243 H 212 H 157 H Hemoglobin A1c Lactic Acid Calcium Phosphorus Ferritin Alkaline Phosphatase Lactate Dehydrogenase Total Protein 01/23/21 01/23/21 01/23/21 11:29 15:42 20:26 WBC RBC Hgb Hct MCV MCHC RDW Lymph % (Auto) Seg Neutrophils % Lymphocytes % (Manual) Monocytes % (Manual) Seg Neutrophils # VBG pH Sodium Potassium Chloride Carbon Dioxide BUN Creatinine Glucose POC Glucose 307 H 208 H 178 H Hemoglobin A1c Lactic Acid Calcium Phosphorus Ferritin Alkaline Phosphatase Lactate Dehydrogenase Total Protein 01/24/21 01/24/21 01/24/21 05:15 05:15 07:57 WBC RBC Hgb Hct MCV MCHC RDW Lymph % (Auto) Seg Neutrophils % Lymphocytes % (Manual) 46.0 H Monocytes % (Manual) 9.0 H Seg Neutrophils # VBG pH Sodium Potassium 3.2 L Chloride Carbon Dioxide BUN 6 L Creatinine 0.7 L Glucose 153 H POC Glucose 188 H Hemoglobin A1c Lactic Acid Calcium Phosphorus Ferritin Alkaline Phosphatase Lactate Dehydrogenase Total Protein 01/24/21 01/24/21 01/24/21 11:01 16:31 20:15 WBC RBC Hgb Hct MCV MCHC RDW Lymph % (Auto) Seg Neutrophils % Lymphocytes % (Manual) Monocytes % (Manual) Seg Neutrophils # VBG pH Sodium Potassium Chloride Carbon Dioxide BUN Creatinine Glucose POC Glucose 352 H 152 H 140 H Hemoglobin A1c Lactic Acid Calcium Phosphorus Ferritin Alkaline Phosphatase Lactate Dehydrogenase Total Protein Chest x-ray: report reviewed, image reviewed CT scan - chest: report reviewed, image reviewed Additional Studies: CHEST 1 VIEW 01/20/21 INDICATION / CLINICAL INFORMATION: Dyspnea cough STUDY TIME: 1239 COMPARISON: None available. FINDINGS: SUPPORT DEVICES: None HEART / MEDIASTINUM: No significant abnormality. LUNGS / PLEURA: No significant acute pulmonary or pleural abnormality. No pneumothorax. ADDITIONAL FINDINGS: No significant additional findings. IMPRESSION: No significant acute abnormality CT angio chest 01/20/21 INDICATION / CLINICAL INFORMATION: tachycardia shortness of breath OMNI 350 60 ML. TECHNIQUE: Axial CT images were obtained through the chest after injection of IV contrast. 3 plane MIP and/or 3D reconstructions were produced. All CT scans at this location are performed using CT dose reduction for ALARA by means of automated exposure control. COMPARISON: None available. FINDINGS: PULMONARY ARTERIES: No central pulmonary artery filling defects. Respiratory motion degrades image quality obscuring the lobar, segmental and subsegmental pulmonary arteries. . HEART: No significant abnormality. MEDIASTINUM / ALISTAIR: No significant abnormality. LUNGS: No significant paraseptal emphysema with bullous changes. Lungs are clear No pleural effusion. No pneumothorax. ADDITIONAL FINDINGS: None. UPPER ABDOMEN: No acute findings. SKELETAL STRUCTURES: No significant osseous abnormality. IMPRESSION: 1. No CT evidence for central pulmonary embolism. Motion significantly degrades image quality in the distal pulmonary arteries are not evaluated. 2. Paraseptal emphysema. No acute findings.
== END 2021-01-25 14:00 | disposition home or self-care (01) | DRG 871 ==
LOC: ED 12:02 → CC1 15:32 → 4A 01-22 21:22
PROVIDERS: ADMIT Internal Medicine; ATTEND Internal Medicine
DX: A41.9 Sepsis, unspecified organism (principal); E11.10 Type 2 diabetes mellitus with ketoacidosis without coma; J96.01 Acute respiratory failure with hypoxia; N17.0 Acute kidney failure with tubular necrosis; E87.1 Hypo-osmolality and hyponatremia; I10 Essential (primary) hypertension; F17.200 Nicotine dependence, unspecified, uncomplicated; F41.9 Anxiety disorder, unspecified; F32.9 Major depressive disorder, single episode, unspecified; E83.39 Other disorders of phosphorus metabolism; E87.6 Hypokalemia; Z20.822 Contact with and (suspected) exposure to COVID-19; Z83.3 Family history of diabetes mellitus; Z82.49 Family history of ischemic heart disease and other diseases of the circulatory system
CPT/HCPCS: 36415; 71045; 71275; 80048; 80053; 80307; 81001; 82140; 82728; 82805; 82947; 82962; 83036; 83615; 83735; 84100; 84132; 84145; 85007; 85025; 85027; 85379; 86140; 87040; 93005; 94640; 99406; G0378; J0456; J0696; J1650; J1815; J2920; J3475; J7030; J7040; J7050; Q9967; U0003